=== PATIENT | male | born 1945 | race Caucasian/White ===

== ENCOUNTER 2020-09-23 06:19 | Day surgery (SDC) | payer SELFPAY ==
[2020-09-23] VITALS (7 sets, daily range): BP systolic 105–166; BP diastolic 52–81; PULSE 48–61; RESP 18; TEMP 36.2–36.8; O2SAT 96–98; BMI 31.5
--- NOTE | 2020-09-23 | IMM_PTH ---
PATIENT: TITI GERARDO LOC: EN U#:[id number] AGE/SX: 75/M ROOM: RE09/23/[address]: Dr. Olinda Acevedo MD : 1945 BED: DIS: 09/23/2020 SPEC #: [id number] RECD: 09/24/20 12:05 STATUS: AIMEE REQ #: [id number] VIVIANE: 09/23/20 00:[address]: Olinda Acevedo DEPT: IMMUNOHISTOCHEMISTRY RECD BY: Bridgette Mina ENTERED: 09/24/20 12:14 SP TYPE: IMMUNO OTHR DR: Humberto Gaytan PA-C Tissues: A - Cecum, NOS Procedures: MSH2 (add) MLH-1 (add) MSH6 (add) Anti-PMS2 (add) ERAZO-2 (add) HER2 ANALIA (add) P53 (add) KI-67 (initial) PHYSICIAN & INSTITUTION [place] [id number] SPECIMEN INFORMATION: Tissue Source: A ? Cecal mass biopsy Clinical Info: Bright red blood per rectum Specimen Number: [id number] CPT code: 57225, 52912 x7 METHODOLOGY: Deparaffinized sections of prefer/formalin-fixed tissue or PAP/DQ stained slides are incubated with monoclonal/polyclonal antibodies/oligonucleotide probes. Localization is made via biotin free immunoperoxidase method. Appropriate controls are performed and reacted as expected. Results on target cell population are indicated in the following table: RESULTS: ANTIBODY / CLONE RESULT Ki-67 (30-9) positive, >90% P53 (DO-7) negative ERAZO-2 (SP21) positive MLH-1 (M1) positive MSH2 (25D12) positive MSH6 (44) positive PMS2 (KMG2327) positive Her-2neu (CB11) negative These tests were developed and their performance characteristics determined by [facility]. They may not have been cleared or approved by the U.S. Food and Drug Administration. The FDA has determined that such clearance or approval is not necessary. The above immunohistochemical/dualISH markers are ordered and reviewed by the Pathologist. INTERPRETATION: Cecal mass, biopsy: Invasive adenocarcinoma. Result of Microsatellite Instability Study: Negative (no loss of mismatch protein; no microsatellite instability detected). AM:ayad 09/25/2020
--- NOTE | 2020-09-23 06:00 | HP_ITS ---
Intake Vital Signs 09/14/20 Height 5 ft 11 in 09/14/20 Weight: 230 lb 09/14/20 BMI 32.1 09/14/20 BP 176/78 H 09/14/20 Blood Pressure Location Rt brachial 09/14/20 Position Sitting 09/14/20 Respiration 16 09/14/20 Pulse 67 09/14/20 Pulse Source Monitor 09/14/20 Temp 97.9 F 09/14/20 Temp Source Temporal 09/14/20 Pulse Oximetry (%) 96 09/14/20 Oxygen Delivery Method room air Intake Visit Reasons: Blood in Stool Rn Integrated Required: No Is patient in pain?: No Allergies No Known Allergies Allergy (Verified 09/14/20 13:33) Medications aspirin 81 mg tablet,delayed release 81 mg PO DAILY 09/14/20 [History Confirmed 09/14/20] glimepiride 2 mg tablet 2 mg PO BID tablet 09/14/20 [History Confirmed 09/14/20] insulin glargine 100 unit/mL (3 mL) subcutaneous pen 40 unit SC DAILY ml 09/14/20 [History Confirmed 09/14/20] lisinopril 5 mg tablet 5 mg PO DAILY tablet 09/14/20 [History Confirmed 09/14/20] metformin 1,000 mg tablet 1,000 mg PO BID tablet 09/14/20 [History Confirmed 09/14/20] pioglitazone 45 mg tablet 45 mg PO DAILY tablet 09/14/20 [History Confirmed 09/14/20] simvastatin 20 mg tablet 20 mg PO ONCE tablet 09/14/20 [History Confirmed 09/14/20] tamsulosin 0.4 mg capsule 0.4 mg PO DAILY cap 09/14/20 [History Confirmed 09/14/20] PFSH Medical History (Updated 09/14/20 @ 13:31 by Sita Edwards) Bleeding (Acute) Blood in stool (Acute) Diabetes (Acute) Systolic hypertension (Acute) Urinary outflow obstruction (Acute) Rectal bleeding (Acute) Surgical History (Updated 09/14/20 @ 13:31 by Sita Edwards) No significant past surgical history (Acute) Family History (Updated 09/14/20 @ 13:31 by Sita Edwards) Mother Diabetes Father CVA (cerebral vascular accident) Social History (Updated 09/14/20 @ 13:32 by Sita Edwards) Smoking Status: Former smoker second hand exposure: No alcohol intake: never substance use type: does not use caffeine: Yes what type of physical activity do you participate in: none frequency: does not exercise HPI HPI HPI: TITI GERARDO, is a 75 M who presents to the office today for HPI HPI Surgical H&P: Yes HPI: TITI GERARDO, is a 75 M who presents to the office today for bright red blood per rectum. Patient states he started to have this on 09/06. Patient states he did have a bowel movement that time but it is not hard. Patient dates he has bowel moods daily denies any pain. Patient states today she did not have any blood per rectum as it has been improving since 09/06/2020. Patient never had a colonoscopy denies any family history of colon cancer, denies any hemorrhoids that he is aware of. Patient denies any chronic abdominal pain and states he only rarely has any reflux. ROS General General: No weight change or fatigue Gastro Gastrointestinal: No abdominal pain, No nausea or vomiting, No diarrhea, No constipation, Yes blood in stool, No acid reflux, No hemorrhoids, No ulcers, No gallbladder problem, No black,tarry stools Exam Const General: cooperative, comfortable, no acute distress, well developed Resp Effort & Inspection: normal respiratory effort Cardio Rate: regular rate GI Inspection: non-distended Palpation: soft, no guarding, nontender Psych Affect: normal affect Assessment & Plan Problems 1. BRBPR (bright red blood per rectum) K62.5 Plan I have discussed the above with the patient. I have offered the patient colonoscopy for evaluation. Scheduled for 09/23/2020 per patient request I have explained the risks/benefits of the procedure and described the procedure. I have discussed the risks with the patient, including but not limited to: infection, bleeding, perforation of the GI tract requiring emergency surgery, inability to complete the procedure, injury to any internal organs, complications of anesthesia, etc. - the patient understands and agrees to proceed. I have answered all the patient's questions to the patient's satisfaction and the patient has no further questions. The patient has been given instructions for the colon cleansing preparation. 1 day of clears, MiraLAX Dulcolax split prep. Olinda Acevedo M.D. Pager: [phone] [facility] [address] [place] [address], [facility], [address] [place] [address] Office: [phone] Orders Orders: Colonoscopy Today Plan Detail Follow Up We will schedule colonoscopy Coding Level of Care Code Off vis,new,level 3 Diagnoses BRBPR (bright red blood per rectum) K62.5 COVID (Procedure Consent) Procedure Criteria Procedure Criteria: Yes Elective The surgeon/proceduralist and patient have discussed in detail the risk of exposure to and/or potential harm posed by the COVID-19 virus with having a surgery/procedure at this time versus the risk of? delaying the surgery/procedure. It is not possible to know either the risk of delaying the surgery or procedure or chance of getting an infection with perfect accuracy, but a joint decision was made between the patient and the surgeon/proceduralist ?to proceed at this time with the scheduled surgery/procedure as indicated on the consent form.
[2020-09-23] MEDS: Lactated Ringers 1,000 ML 100 ML IV (07:02)
--- NOTE | 2020-09-23 07:14 | H&P.OPEN ---
HPI - General HPI Narrative TITI GERARDO, is a 75 M who presents [facility] Medical History (Updated 09/21/20 @ 10:46 by Lary Cotton) Back pain Bleeding Blood in stool Diabetes Heartburn Hx of cardiovascular stress test Hypertension Loose, teeth Rectal bleeding Restless legs Shortness of breath on exertion Smoker Syncope Systolic hypertension Urinary outflow obstruction Wears glasses Wears hearing aid in both ears Home Medications aspirin 81 mg tablet,delayed release 81 mg PO DAILY 09/14/20 [History Last Taken Unknown] glimepiride 2 mg tablet 2 mg PO BID tablet 09/14/20 [History Last Taken Unknown] insulin glargine 100 unit/mL (3 mL) subcutaneous pen 40 unit SC QHS ml 09/14/20 [History Last Taken Unknown] lisinopril 5 mg tablet 5 mg PO DAILY tablet 09/14/20 [History Last Taken Unknown] metformin 1,000 mg tablet 1,000 mg PO BID tablet 09/14/20 [History Last Taken Unknown] pioglitazone 45 mg tablet 45 mg PO DAILY tablet 09/14/20 [History Last Taken Unknown] simvastatin 20 mg tablet 20 mg PO ONCE tablet 09/14/20 [History Last Taken Unknown] tamsulosin 0.4 mg capsule 0.4 mg PO DAILY cap 09/14/20 [History Last Taken Unknown] Allergy/AdvReac Type Severity Reaction Status Date / Time No Known Allergies Allergy Verified 09/21/20 10:36 Family History (Updated 09/14/20 @ 13:31 by Sita Edwards) Mother Diabetes Father CVA (cerebral vascular accident) Surgical History (Updated 09/14/20 @ 13:31 by Sita Edwards) No significant past surgical history Social History (Updated 09/14/20 @ 13:[address] Olinda Acevedo MD) Smoking Status: Current some day smoker second hand exposure: No alcohol intake: never substance use type: does not use caffeine: Yes what type of physical activity do you participate in: none frequency: does not exercise Past Medical/Surgical History Planned Operation Planned Operative Procedure/s: CSCOPE Previous Hospitalizations/Surgeries HX Hospitalizations: No Any Problems With Anesthesia: No You/Your Family Experience Fever (Hyperthermia) With Anes: No Cholinesterase deficiency: No Cardiovascular Hx Hypertension: Yes (CONTROLLED WITH MED) Respiratory Hx Sleep Apnea: No Hx Respiratory Tract Infection/Cold (presently): No Do You Snore Loudly (louder than talking or can be heard): No Do You Often Feel Tired/ Fatigued/ Sleepy Dring Daytime?: No Has Anyone Observed You Stop Breathing During Sleep?: No Result (for STOP score): Negative Smoking Status: Current some day smoker Neurological Does patient have nerve stimulator: No Reproduction : No Miscellaneous Recent Exposure to Contagious Disease: No Allergies No Known Allergies Allergy (Verified 09/21/20 10:36) Discharge Is Pt Admitted From a [facility], or a Custodial: No After D/C, Where Do you Plan to Go: Return Home Vital Signs Vital Signs Vital Signs: 09/23/20 07:08 Temperature 97.1 F L Temperature Source Temporal Pulse Rate 48 L Respiratory Rate 18 Respiratory Pattern Normal Blood Pressure 166/60 H Blood Pressure Mean 95 Blood Pressure Source Monitor Blood Pressure Position Sitting Blood Pressure Location Left Arm Pulse Ox 98 Oxygen Delivery Method Room Air Surgery Risks - Colonoscopy Risks Include but are not Limited To: Risks include but are not limited to: Bleeding, perforation requiring further surgery, inability to complete colonoscopy requiring barium enema.
--- NOTE | 2020-09-23 07:15 | HP.PCM_ITS ---
History and Physical Date of Admission: 09/23/20 Date of Service: 09/14/20 MR#:[id number]:[id number]: TITI GERARDO [facility] #:[id number]:1945 Provider:Pito Pool/Sex: 75/M [facility] Int[facility] Vital Signs 09/14/20 Height 5 ft 11 in 09/14/20 Weight: 230 lb 09/14/20 BMI 32.1 09/14/20 BP 176/78 H 09/14/20 Blood Pressure Location Rt brachial 09/14/20 Position Sitting 09/14/20 Respiration 16 09/14/20 Pulse 67 09/14/20 Pulse Source Monitor 09/14/20 Temp 97.9 F 09/14/20 Temp Source Temporal 09/14/20 Pulse Oximetry (%) 96 09/14/20 Oxygen Delivery Method room air Intake Visit Reasons: Blood in Stool 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: No Is patient in pain?: No Allergies No Known Allergies Allergy (Verified 09/14/20 13:33) Medications aspirin 81 mg tablet,delayed release 81 mg PO DAILY 09/14/20 [History Confirmed 09/14/20] glimepiride 2 mg tablet 2 mg PO BID tablet 09/14/20 [History Confirmed 0 09/14/20] insulin glargine 100 unit/mL (3 mL) subcutaneous pen 40 unit SC DAILY ml 09/14/20 [History Confirmed 09/14/20] lisinopril 5 mg tablet 5 mg PO DAILY tablet 09/14/20 [History Confirmed ] metformin 1,000 mg tablet 1,000 mg PO BID tablet 09/14/20 [History Confirmed 09/14/20] pioglitazone 45 mg tablet 45 mg PO DAILY tablet 09/14/20 [History Confirmed 09/14/20] simvastatin 20 mg tablet 20 mg PO ONCE tablet 09/14/20 [History Confirmed 09/14/20] tamsulosin 0.4 mg capsule 0.4 mg PO DAILY cap 09/14/20 [History Confirmed 09/14/20] [facility] Medical History (Updated 09/14/20 @ 13:31 by Sita Edwards) Bleeding (Acute) Blood in stool (Acute) Diabetes (Acute) Systolic hypertension (Acute) Urinary outflow obstruction (Acute) Rectal bleeding (Acute) Surgical History (Updated 09/14/20 @ 13:31 by Sita Edwards) No significant past surgical history (Acute) Family History (Updated 09/14/20 @ 13:31 by Sita Edwards) Mother Diabetes Father CVA (cerebral vascular accident) Social History (Updated 09/14/20 @ 13:32 by Sita Edwards) Smoking Status: Former smoker second hand exposure: No alcohol intake: never substance use type: does not use caffeine: Yes what type of physical activity do you participate in: none frequency: does not exercise HPI HPI HPI: TITI GERARDO, is a 75 M who presents to the office today for HPI HPI Surgical H&P: Yes HPI: TITI GERARDO, is a 75 M who presents to the office today for bright red blood per rectum. Patient states he started to have this on 09/06. Patient states he did have a bowel movement that time but it is not hard. Patient dates he has bowel moods daily denies any pain. Patient states today she did not have any blood per rectum as it has been improving since 09/06/2020. Patient never had a colonoscopy denies any family history of colon cancer, denies any hemorrhoids that he is aware of. Patient denies any chronic abdominal pain and states he only rarely has any reflux. ROS General General: No weight change or fatigue Gastro Gastrointestinal: No abdominal pain, No nausea or vomiting, No diarrhea, No constipation, Yes blood in stool, No acid reflux, No hemorrhoids, No ulcers, No gallbladder problem, No black,tarry stools Exam Const General: cooperative, comfortable, no acute distress, well developed Resp Effort & Inspection: normal respiratory effort Cardio Rate: regular rate GI Inspection: non-distended Palpation: soft, no guarding, nontender Psych Affect: normal affect Assessment & Plan Problems 1. BRBPR (bright red blood per rectum) K62.5 Plan I have discussed the above with the patient. I have offered the patient colonoscopy for evaluation. Scheduled for 09/23/2020 per patient request I have explained the risks/benefits of the procedure and described the procedure. I have discussed the risks with the patient, including but not limited to: infection, bleeding, perforation of the GI tract requiring emergency surgery, inability to complete the procedure, injury to any internal organs, complications of anesthesia, etc. - the patient understands and agrees to proceed. I have answered all the patient's questions to the patient's satisfaction and the patient has no further questions. The patient has been given instructions for the colon cleansing preparation. 1 day of clears, MiraLAX Dulcolax split prep. Olinda Acevedo M.D. Pager: [phone] [facility] [address] [place] [address], [facility], [address] [place] [address] Office: [phone] Orders Orders: Colonoscopy Today Plan Detail Follow Up We will schedule colonoscopy Coding Level of Care Code Off vis,new,level 3 Diagnoses BRBPR (bright red blood per rectum) K62.5 COVID (Procedure Consent) Procedure Criteria Procedure Criteria: Yes Elective The surgeon/proceduralist and patient have discussed in detail the risk of exposure to and/or potential harm posed by the COVID-19 virus with having a surgery/procedure at this time versus the risk of delaying the surgery/procedure. It is not possible to know either the risk of delaying the surgery or procedure or chance of getting an infection with perfect accuracy, but a joint decision was made between the patient and the surgeon/proceduralist to proceed at this time with the scheduled surgery/procedure as indicated on the consent form. 09/15/20 1237<Electronically signed by Olinda Acevedo MD>Date Olinda Acevedo MD
--- NOTE | 2020-09-23 07:30 | COLBX_PTH ---
PATIENT: TITI GERARDO LOC: EN U#:[id number] AGE/SX: 75/M ROOM: RE09/23/[address]: Dr. Olinda Acevedo MD : 1945 BED: DIS: 09/23/2020 SPEC #: [id number] RECD: 09/23/20 11:37 STATUS: AIMEE REJavid #: [id number] VIVIANE: 09/23/20 07:[address]: Olinda Acevedo DEPT: SURGICAL PATHOLOGY RECD BY: Keven Pena ENTERED: 09/23/20 13:22 SP TYPE: COLON BX OTHR DR: Humberto Gaytan PA-C Tissues: A - Cecum, NOS B - Descending colon Procedures: Surgery Specimen Level IV HEADER OPERATION: Colonoscopy (MAC) PRE-OP DIAGNOSIS: Bright red blood per rectum TISSUE SUBMITTED: A ? Cecal mass biopsy, B ? Biopsy of descending colon MICROSCOPIC DIAGNOSIS A. Cecal mass, biopsy: Invasive adenocarcinoma, moderately differentiated. See comment. B. Descending colon polyp, biopsy: Fragments of benign colonic mucosa. See comment. AM:ayad 09/24/2020 COMMENT A. Immunohistochemistry ([id number]) for microsatellite instability will be performed and the results will be reported separately. B. Neither hyperplastic nor adenomatous change is identified. Clinical correlation is suggested. Case has been reviewed in consultation with Dr. Negron who concurs with the above diagnosis. IDC:RICARDO MICROSCOPIC DESCRIPTION Slides are reviewed. GROSS DESCRIPTION A - Received in fixative is one container labeled with the patient's name and designated cecal mass biopsy. The specimen consists of multiple irregular fragments of light thacker soft tissue that in aggregate measure 1.5 x 0.5 x 0.1 cm. The specimen is totally submitted in one cassette. B - Received in fixative is one container labeled with the patient's name and designated biopsy of descending colon. The specimen consists of two irregular fragments of light thacker soft tissue that in aggregate measure 0.7 x 0.5 x 0.1 cm. The specimen is totally submitted in one cassette. / SJ:ayad 09/23/20 TC:0 CPT: 29875 x2
[2020-09-23 07:36] LABS: Bedside Glucose 163 mg/dL (70-110)
--- NOTE | 2020-09-23 08:17 | OP.COLON_ITS ---
Patient Name: Wilfred Grier Procedure Date: 09/23/2020 7:35 AM Date of : 1945 Age: 75 Procedure: Colonoscopy Indications: Rectal bleeding Providers: Olinda Acevedo MD Referring MD: Olinda Acevedo MD Medicines: Monitored Anesthesia Care Patient Profile: Last Colonoscopy: none. The patient's first colonoscopy is today. Complications: No immediate complications. Procedure: Pre-Anesthesia Assessment: - Prior to the procedure, a History and Physical was performed, and patient medications and allergies were reviewed. The patient's tolerance of previous anesthesia was also reviewed. The risks and benefits of the procedure and the sedation options and risks were discussed with the patient. All questions were answered, and informed consent was obtained. Prior Anticoagulants: The patient has taken no previous anticoagulant or antiplatelet agents. ASA Grade Assessment: Per anesthesia. After reviewing the risks and benefits, the patient was deemed in satisfactory condition to undergo the procedure. After I obtained informed consent, the scope was passed under direct vision. Throughout the procedure, the patient's blood pressure, pulse, and oxygen saturations were monitored continuously. The pediatric colonoscope was introduced through the anus and advanced to the cecum, identified by the appendiceal orifice, ileocecal valve and palpation. The colonoscopy was performed without difficulty. The patient tolerated the procedure well. The quality of the bowel preparation was good. Scope In: 7:49:53 AM Scope Withdrawal Time 0 hours 11 minutes 58 seconds Scope Out: 8:06:45 AM Total Procedure Duration Time 0 hours 16 minutes 52 seconds Findings: The perianal and digital rectal examinations were normal. A frond-like/villous non-obstructing [Size] mass was found in the cecum. [Circumferential]. The mass measured three cm in length. No bleeding was present. Biopsies were taken with a cold forceps for histology. A less than 5 mm polyp was found in the descending colon. The polyp was sessile. The polyp was removed with a cold biopsy forceps. Resection and retrieval were complete. Impression: - Likely malignant tumor in the cecum. Biopsied. - One less than 5 mm polyp in the descending colon, removed with a cold biopsy forceps. Resected and retrieved. Recommendation: - Await pathology results. - Discharge patient to home. - Resume previous diet. - Continue present medications. - Pt will need surgery for right hemicolectomy due to mass - Repeat colonoscopy is recommended. The colonoscopy date will be determined after pathology results from today's exam become available for review. Procedure Code(s): --- Professional --- 37680, Colonoscopy, flexible; with biopsy, single or multiple Diagnosis Code(s): --- Professional --- D49.0, Neoplasm of unspecified behavior of digestive system D12.4, Benign neoplasm of descending colon K62.5, Hemorrhage of anus and rectum CPT copyright 2017 [employer]. All rights reserved. The codes documented in this report are preliminary and upon lead architect review may be revised to meet current compliance requirements. MD Olinda Wilkins MD 09/23/2020 8:16:34 AM This report has been signed electronically. Number of Addenda: 0 Note Initiated On: 09/23/2020 7:35 AM
--- NOTE | 2020-09-23 08:17 | OP.CCLET_ITS ---
09/23/2020 Humberto Gaytan Do Re : Colonoscopy procedure for Wilfred Grier Dear Lucila This procedure was performed on Wednesday, September 23, 2020. My impressions and recommendations are as follows: Impressions : - Likely malignant tumor in the cecum. Biopsied. - One less than 5 mm polyp in the descending colon, removed with a cold biopsy forceps. Resected and retrieved. Recommendations : - Await pathology results. - Discharge patient to home. - Resume previous diet. - Continue present medications. - Pt will need surgery for right hemicolectomy due to mass - Repeat colonoscopy is recommended. The colonoscopy date will be determined after pathology results from today's exam become available for review. My findings are described in the full procedure note, which is enclosed. If I can be of further assistance, please feel free to contact me at Doctor phone number(s): , Work: . Sincerely, MD Olinda Wilkins MD 09/23/2020 8:16:34 AM This report has been signed electronically.
--- NOTE | 2020-09-23 08:33 | CT_ITS ---
STUDY: CT CHEST, ABDOMEN T PELVIS WITH CONTRAST REASON FOR EXAM: Male, 75 years old. ABD MASS found on colonoscopy. History of rectal bleeding. -- IV AND PO CONTRAST RADIATION DOSAGE (If Supplied By Facility): CTDIvol = ( 22.06 ) mGy, DLP = ( 1899.90 ) mGycm TECHNIQUE: Transaxial imaging was performed following intravenous administration of Oral and amp; IV Gastrografin and amp; 100mL Isovue-370. Individualized dose optimization techniques were used for this CT. COMPARISON: No relevant priors. FINDINGS: CHEST Inhomogeneous enhancement of the right lobe of the thyroid and isthmus. Correlation with ultrasound is recommended. Mild degree of increased linear markings at the lung bases suggestive of bowel mild atelectasis and/or scarring. There is a 1.4 cm cyst in the anterior aspect of the right upper lobe at level of the apex. There is no demonstrated pleural abnormality. Coronary artery calcification. Normal mediastinum. Normal hilar regions. Normal unenhanced pulmonary arteries. There is atherosclerotic calcification of the aortic arch with tortuosity and elongation of the aortic arch and descending thoracic aorta. There are multi-level degenerative changes of the thoracic spine. There is no demonstrated abnormality of the visualized upper abdomen. ABDOMEN Increased markings at the lung bases suggestive of scarring. Coronary artery calcification. There is hepatomegaly with diffuse hepatic enlargement. Normal gallbladder and extrahepatic biliary system. Normal spleen. Normal pancreas. Normal bilateral adrenal glands. 1 cm cyst in the anterior midportion of the right kidney. Normal left kidney. Normal visualized stomach. Normal small intestine. Normal colon. The appendix is visualized and appears normal. There is diffuse atherosclerotic calcification of the abdominal aorta and its major visceral branches, without a demonstrated aneurysm. Normal inferior vena cava. There is borderline retroperitoneal lymphadenopathy with enlarged nodes no greater than 10mm in the short axis diameter. Normal abdominal wall. Normal osseous structures. PELVIS Distended urinary bladder. Focal thickening of the urinary bladder at the base on the right side. Correlation with endoscopy is recommended. Normal visualized small intestine. Question small soft tissue density in the cecum. There is no pelvic fluid. There is no pelvic lymphadenopathy or mass lesion. Normal visualized pelvic arteries. Normal abdominal wall. There are diffuse degenerative changes of the visualized lumbar spine. CT/CT Chest, Abd, Pel w/Contrast IMPRESSION: Distended urinary bladder. Soft tissue density at the base of the bladder on the right side. Correlation with endoscopy is recommended. Questionable soft tissue density in the cecum. Electronically Signed: Konrad Silvestre MD at 12:17 EDT , Service support ,
[2020-09-23 10:32] LABS: Hematocrit 37.8 % (40-54); Hemoglobin 12.1 g/dL (13.0-16.5); Mean Corpuscular Hgb 28.9 pg (27.0-32.0); Mean Corpuscular Volume 90.2 fL (80-94); Mean Platelet Vol. 9.8 fl (6.2-12.0); Platelet Count 193 K/mm3 (150-450); RBC Distribution Width CV 14.5 % (11.6-14.6); Red Blood Count 4.19 M/mm3 (4.6-6.2); White Blood Count 6.5 K/mm3 (4.4-11.0)
[2020-09-23 10:48] LABS: AST(SGOT) 14 U/L (15-37); Alanine Aminotransfer ALT/SGPT 17 U/L (16-61); Albumin, Serum 3.4 g/dL (3.2-5.0); Alkaline Phosphatase 80 U/L (45-117); Anion Gap 3 (5-15); BUN 9 mg/dL (7-18); BUN/Creat Ratio 13.3 RATIO (10-20); Calcium,Total 8.6 mg/dL (8.5-10.1); Chloride 109 mmol/L (98-107); Creatinine, Serum 0.68 mg/dL (0.70-1.30); EST Glomerular Filtration Rate 121 mL/min (>60); Est Glom Filt Rate - Afr Amer 146 mL/min (>60); Estimated Creatinine Clearance 66.93 ml/min; Globulin 3.4 g/dL (2.2-4.2); Glucose 135 mg/dL (74-106); Potassium 4.2 mmol/L (3.5-5.1); Protein, Total 6.8 g/dL (6.4-8.2); Sodium Level 139 mmol/L (136-145)
== END 2020-09-23 11:00 ==
LOC: EN 06:21 → AC 06:22
PROVIDERS: PCP Physician Assistant; Referring Provider Surgery; Visit Provider Surgery
PROC: 0DJD8ZZ Inspection of Lower Intestinal Tract, Via Natural or Artificial Opening Endoscopic (ICD-10-PCS; CPT 45378; principal; 2020-09-23 07:25)
DX: C18.0 Malignant neoplasm of cecum (principal); E11.9 Type 2 diabetes mellitus without complications; I10 Essential (primary) hypertension; E66.9 Obesity, unspecified; Z79.4 Long term (current) use of insulin; Z79.82 Long term (current) use of aspirin; Z68.31 Body mass index [BMI] 31.0-31.9, adult; Z79.899 Other long term (current) drug therapy; Z68.32 Body mass index [BMI] 32.0-32.9, adult; Z87.891 Personal history of nicotine dependence
CPT/HCPCS: 45380; 71260; 74177; 80053; 82378; 82962; 85027; 87635; 88305; 88341; 88342; C9803; J7120; Q9967; A4216; J2405; U0002

== ENCOUNTER 2020-10-12 05:10 | Inpatient (IN) | payer SELFPAY ==
[2020-10-01 08:10] VITALS: BMI 31.5
--- NOTE | 2020-10-02 09:52 | NURSING ---
Pt's answered PAT phone interview questions. pt's voiced confusion regarding several items; pt's instructed to call Dr Acevedo's office to clarify: if need to stop aspirin, pre-op antibiotics, date of the surgery (10/08 vs 10/12), and colon prep. Pt's verbalizes understanding and states she wrote down those items. Pt's instructed to phone back to PAT if any other concerns or questions.
--- NOTE | 2020-10-06 09:05 | EKG12_ITS ---
Test Reason : PREOP Blood Pressure : / mmHG Vent. Rate : 048 BPM Atrial Rate : 048 BPM P-R Int : 180 ms QRS Dur : 088 ms QT Int : 462 ms P-R-T Axes : 023 007 014 degrees QTc Int : 412 ms Sinus bradycardia Otherwise normal ECG Confirmed by PATRICIA ARRIAZA, FABIAN ([id number]), digital editor NAYLA GUPTA ([id number]) on 10/07/2020 10:28:52 AM Referred By: GÉNESIS ABREU Confirmed By:FABIAN GOMEZ MD
[2020-10-06 10:26] LABS: Hematocrit 40.5 % (40-54); Hemoglobin 12.7 g/dL (13.0-16.5); Mean Corp Hgb Conc 31.4 g/dL (32-36); Mean Corpuscular Hgb 29.1 pg (27.0-32.0); Mean Corpuscular Volume 92.9 fL (80-94); Mean Platelet Vol. 9.8 fl (6.2-12.0); Platelet Count 184 K/mm3 (150-450); RBC Distribution Width CV 14.4 % (11.6-14.6); RBC Distribution Width SD 48.8 fl (35.1-43.9); Red Blood Count 4.36 M/mm3 (4.6-6.2); White Blood Count 7.2 K/mm3 (4.4-11.0)
[2020-10-06 10:52] LABS: Hemoglobin A1c 7.8 % (3.8-5.6)
[2020-10-06 10:57] LABS: Anion Gap 3 (5-15); BUN 18 mg/dL (7-18); BUN/Creat Ratio 22.1 RATIO (10-20); Calcium,Total 8.8 mg/dL (8.5-10.1); Chloride 105 mmol/L (98-107); Creatinine, Serum 0.82 mg/dL (0.70-1.30); EST Glomerular Filtration Rate 98 mL/min (>60); Est Glom Filt Rate - Afr Amer 118 mL/min (>60); Glucose 191 mg/dL (74-106); Magnesium 2.1 mg/dL (1.6-2.6); Potassium 4.7 mmol/L (3.5-5.1); Sodium Level 138 mmol/L (136-145)
[2020-10-12] VITALS (14 sets, daily range): BP systolic 118–164; BP diastolic 62–78; PULSE 50–63; RESP 14–18; TEMP 36.1–36.9; O2SAT 91–98; BMI 31.0
[2020-10-12] MEDS: Gabapentin 600 MG Tablet PO (06:21)
[2020-10-12] MEDS: Acetaminophen 500 MG Tablet 1000 MG PO ×3 (06:21→20:57)
[2020-10-12] MEDS: Lactated Ringers 1,000 ML 40 ML IV ×2 (06:22→21:02)
[2020-10-12] MEDS: Insulin Lispro 100 UNIT/ML INSULN.PEN SC ×5 (06:32→20:57)
[2020-10-12 06:41] LABS: Bedside Glucose 212 mg/dL (70-110)
--- NOTE | 2020-10-12 07:12 | HP.PCM_ITS ---
History and Physical Date of Admission: 10/12/20 Date of Service: 10/01/20 MR#:[id number] Acct:[id number] Name: TITI GERARDO :1945 Age/Sex: 75/M Provider:Dr. 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: No Is patient in pain?: No Allergies No Known Allergies Allergy (Verified 10/01/20 08:09) Medications aspirin 81 mg tablet,delayed release 81 mg PO DAILY 09/14/20 [History Confirmed 10/01/20] glimepiride 2 mg tablet 2 mg PO BID tablet 09/14/20 [History Confirmed 10/01/20] insulin glargine 100 unit/mL (3 mL) subcutaneous pen 40 unit SC QHS ml 09/14/20 [History Confirmed 10/01/20] lisinopril 5 mg tablet 5 mg PO DAILY tablet 09/14/20 [History Confirmed 10/01/20] metformin 1,000 mg tablet 1,000 mg PO BID tablet 09/14/20 [History Confirmed 10/01/20] pioglitazone 45 mg tablet 45 mg PO DAILY tablet 09/14/20 [History Confirmed 10/01/20] simvastatin 20 mg tablet 20 mg PO ONCE tablet 09/14/20 [History Confirmed 10/01/20] tamsulosin 0.4 mg capsule 0.4 mg PO DAILY cap 09/14/20 [History Confirmed 10/01/20] metronidazole 500 mg tablet 500 mg PO .COMPLEX #6 tab 10/01/20 [Rx Confirmed 10/01/20] neomycin 500 mg tablet 500 mg PO .COMPLEX #6 tab 10/01/20 [Rx Confirmed 10/01/20] [facility] Medical History Back pain Bleeding Blood in stool Diabetes Heartburn Hx of cardiovascular stress test Hypertension Loose, teeth Rectal bleeding Restless legs Shortness of breath on exertion Smoker Syncope Systolic hypertension Urinary outflow obstruction Wears glasses Wears hearing aid in both ears Surgical History No significant past surgical history Family History Mother Diabetes Father CVA (cerebral vascular accident) Social History Smoking Status: Current some day smoker second hand exposure: No alcohol intake: never substance use type: does not use caffeine: Yes what type of physical activity do you participate in: none frequency: does not exercise HPI: TITI GERARDO, is a 75 M who presents to the office today for discussion of pathology status post colonoscopy. Patient did have cecal mass noted on colonoscopy. Pathology did show adenocarcinoma. Patient did have a CT chest abdomen pelvis as well as labs after the colonoscopy which did not show any evidence of metastatic disease, lab work was within normal limits CEA was 3. Patient denies any abdominal pain or any further bleeding per rectum. ROS General General: Yes colon cancer Cardio Cardiovascular: No chest pain Gastro Gastrointestinal: No abdominal pain, No nausea or vomiting, No diarrhea, No constipation, No acid reflux, No hemorrhoids, No ulcers and No gallbladder problem Exam Const General: cooperative, healthy appearing, comfortable and no acute distress Neck Neck: normal visual inspection Resp Effort & Inspection: normal respiratory effort Cardio Rate: regular rate GI Inspection: non-distended Palpation: soft, no guarding and nontender Skin General: no rashes or lesions noted Neuro General: patient oriented x3 Psych Affect: normal affect COVID (Procedure Consent) Procedure Criteria Procedure Criteria: Yes Elective The surgeon/proceduralist and patient have discussed in detail the risk of exposure to and/or potential harm posed by the COVID-19 virus with having a surgery/procedure at this time versus the risk of delaying the surgery/procedure. It is not possible to know either the risk of delaying the surgery or procedure or chance of getting an infection with perfect accuracy, but a joint decision was made between the patient and the surgeon/proceduralist to proceed at this time with the scheduled surgery/procedure as indicated on the consent form. Assessment and Plan Assessment and Plan (1) Colon adenocarcinoma: Status: Acute Plan Details Other Medications: New: neomycin Take two (2) 500 mg tablets PO at 1300, 1500, 2300 6 tabs 0RF pre-op antibiotics metronidazole Take 2 (two) tablets at 1300, 1500, 2300 6 tabs 0RF Additional Comments: Did discuss the anatomy and procedure: (ERAS) laparoscopic right hemicolectomy, possible open with the patient. Including risks, but not limited to, bleeding, infection (superficial or intraabdominal), injury to another organ (small bowel, colon, ureter, etc.) requiring additional procedures, and blood clots. Also, discussed the pre-op, colon prep and antibiotics. All questions were answered. Greater than 50% of direct patient contact was spent in counseling or coordination of care. I spent 25 minutes counseling the patient on colon cancer treatment, reviewing CT abdomen pelvis and coordinating care. Olinda Acevedo M.D. Pager: [phone] [facility] [address] [place] [address], [address] [place] [id number] Office: [phone] Follow Up: We will schedule surgery Coding Level of Care Code Off vis,est,level 4 Diagnoses Colon adenocarcinoma C18.9 10/01/20 0846<Electronically signed by Olinda Acevedo MD>Date Olinda Acevedo MD
--- NOTE | 2020-10-12 07:30 | COL._PTH ---
PATIENT: TITI GERARDO LOC: MS3 U#:[id number] AGE/SX: 75/M ROOM: [facility] [place]10/12/[address]: Dr. Olinda Acevedo MD : 1945 BED: 1 DIS: 10/16/2020 SPEC #: [id number] RECD: 10/12/20 13:26 STATUS: AIMEE REJavid #: [id number] VIVIANE: 10/12/20 07:[address]: Olinda Acevedo DEPT: SURGICAL PATHOLOGY RECD BY: Annie Corbin ENTERED: 10/13/20 08:18 SP TYPE: COLON OTHR DR: MD Humberto Galan PA-C Tissues: Colon, NOS Procedures: Surgery Specimen Level III Surgery Specimen Level HEADER OPERATION: NATALYA, laparoscopic hemicolectomy PRE-OP DIAGNOSIS: Colon adenocarcinoma TISSUE SUBMITTED: Right hemicolon MICROSCOPIC DIAGNOSIS Right colon, hemicolectomy: Invasive well to moderately differentiated adenocarcinoma. 18 out of 18 lymph nodes, negative for metastatic carcinoma. Colonic and small intestine donut, no pathologic diagnosis. See cancer summary in the comment section. SJ:ayad 10/14/2020 COMMENT COLON CANCER SUMMARY Procedure: Right hemicolectomy Tumor site: Cecum Tumor size: 6 x 4 x 2 cm Macroscopic tumor perforation: Not identified Histologic type: Adenocarcinoma Histologic grade: Grade 1-2 (well to moderately differentiated) Tumor extension: Tumor invades through muscularis propria into pericolonic adipose tissue. Margins: All margins are uninvolved by invasive carcinoma, high grade dysplasia, intramucosal adenocarcinoma and adenoma. The tumor is present 12.5 cm away from the proximal resection margin. Treatment effect: No known presurgical therapy. Lymphvascular invasion: Not identified Perineural invasion: Not identified Type of polyp in which invasive carcinoma arose: None identified Tumor deposits: Not identified Regional lymph nodes: Number of lymph nodes examined: 18 Number of lymph nodes involved: 0 Distant metastasis: Not applicable Additional pathologic findings: Appendix, fibrous luminal obliteration. Colonic and small intestine donut, no pathologic diagnosis. Ancillary studies: Please see microsatellite instability study by IHC ([id number]) for complete details. Negative (no loss of mismatch protein; no microsatellite instability detected). PATHOLOGIC STAGE: pT3 pN0 Mx The above summary is in compliance with [employer] [place] [employer] (CAP) Cancer Protocols Checklist and [place] Joint Committee on Cancer (AJCC), Staging Manual, 8th Ed. Please make reference to previous specimen ([id number]) cecal mass, biopsy with diagnosis of invasive adenocarcinoma, moderately differentiated. Case has been reviewed in consultation with Dr. Santillan who concurs with the above diagnosis. IDC:AM MICROSCOPIC DESCRIPTION Slides are reviewed. GROSS DESCRIPTION Received in fixative is one container labeled with the patient's name and designated right hemicolon. The specimen consists of a right hemicolectomy specimen consisting of segment of colon with attached pericolonic adipose tissue, segment of small intestine, attached mesenteric tissue and appendix. Both resection margins are stapled. A piece of omental tissue is also noted attached to the distal portion. The segment of cecum with ascending colon measures 20 cm in length. The appendix measures 3 cm in length and 0.4 cm in diameter and segment of small intestine measures 10 cm in length. The attached omentum measures 18 x 9 x 1.5 cm. A donut-shaped piece of tissue is also noted measuring 4 x 1 x 1 cm. 17 cm away from the distal resection margin and 2.5 cm away from the ileocecal valve is an ulcerated cauliflower-like mass is noted measuring 6 x 4 x 2 cm. No additional mass lesion is identified. The lumen contains fecal material. The serosal surface overlying the mass is inked blue. The pericolonic adipose tissue is fixed in lymph node-revealing solution. More dictation will follow after overnight fixation. / SJ:ayad 10/12/20 Sections of the appendix reveal obliterated lumen. Sections of the tumor mass reveal full thickness involvement of the bowel wall. Sections of the omentum does not reveal any mass lesion. Sections of pericolonic adipose tissue reveal multiple lymph nodes. The largest lymph node measures 1 cm in greatest dimension. Colon Therapist sections are submitted as follows: 1 - donut, 2 - appendix, entirely submitted, 3 - proximal and distal resection margins, 4 - uninvolved small intestine, large intestine and ileocecal valve, 4-9 - tumor, 10??one bisected lymph node, 11 & 12 - multiple lymph nodes, 13 - one serially sectioned lymph node, 14?- one bisected lymph node, 15 & 16 - each cassette containing multiple lymph nodes, 17 - one serially sectioned lymph node. / SJ:ayad 10/13/20 TC:0 CPT: 75305, 82275
[2020-10-12] MEDS: Lidocaine/D5W 2,000 MG/250 ML IV.SOLN 30 MG IV (07:50)
[2020-10-12] MEDS: Bupivacaine 0.25% 30 ML Vial (08:00)
[2020-10-12] MEDS: BUPIVACAINE LIPOSOME/PF 20 ML VIAL OPERA.SITE (08:00)
--- NOTE | 2020-10-12 10:26 | PCM.OPRPT ---
Report of Operation Date of Procedure: 10/12/20 Pre-Operative Diagnosis: Cecal adenocarcinoma Post-Operative Diagnosis: Same Surgery/Procedure Performed:: Laparoscopic right hemicolectomy Surgeon: Olinda Acevedo foundation stage teacher: Elsa Hendrix Type of Anesthesia: General/Supplemental Anesthesiologist: Tonny Duffy Special Medications: Cefotetan 2 g IV x1 Specimen's removed: Right colon Drains: Hayes 200 cc Estimated Blood Loss (mL): 20 cc Fluids Replaced: Per anesthesia Description of Procedure: Indications this is a 75-year-old male who initially had bright red blood per rectum, colonoscopy was completed which showed a cecal mass consistent with adenocarcinoma. Laparoscopic right hemicolectomy was elected. Description procedure: The patient was placed on operating table in supine position. General Anesthesia was induced. A timeout was completed verifying correct patient, procedure, site, position, social, and special equipment prior to beginning procedure. Hayes catheter was placed. The abdomen was prepped and draped in usual sterile fashion. An incision was made in the natural skin line above the umbilicus. The fascia was elevated and incised. The peritoneum was elevated and incised. Entry into the peritoneum was confirmed visually and no bowel was noted in the vicinity of the incision. Hardin trocar was placed. The abdomen was insufflated with carbon dioxide to a pressure of 12-15 mmHg. Patient tolerated insufflation well. The laparoscope was then inserted and abdomen inspected. No injuries from initial trocar placement were noted. Additional trochars were then inserted in the following locations 5 mm trocar in the left lower quadrant, and another 5 mm suprapubically. The abdomen was inspected the area of the cecal mass did have some filmy adhesions to the anterior lateral abdominal wall these were taken down with the Enseal. The table is placed in Trendelenburg position with the right side up. The cecum was grasped with the left hand the operating surgeon lifted up to tent the ileocolic artery. The dissection was then started at the base of the ileocolic artery were joined the superior mesenteric artery. The peritoneum overlying the takeoff of the ileal colic artery was opened using electrocautery. 5 mm Hem-o-ok clips x3 were used to go across ileocolic vessels, once that had been cleaned off, divided with laparoscopic scissors. Dissection continued bluntly in the retroperitoneum using traction and countertraction technique with gentle sweeping and visualization of the ureter was confirmed. This dissection was carried along the plane of the white line of Toldt to the duodenum. The duodenum and its attachments were swept downward. This dissection continued in an avascular plane to the liver and gallbladder were encountered. The lateral attachments of the ascending colon were then divided using the Enseal. The omentum attached to resect a portion of the colon was divided and resected with the specimen. The supraumbilical incision was enlarged in length. A wound protector was then placed into the peritoneal cavity to prevent port site implantation as well as minimize risk of wound infection. They ascending and transverse colon were then delivered and extracted. The small bowel and colon was then divided extracorporeally with the BASHIR 75 after the right branch of the middle colic was also divided with the Enseal. The mesenteric dissection was completed using the Enseal. The specimen was removed. The 2 ends of the ileum and transverse colon were then aligned, ensuring that the mesentery was not twisted, and the staple [id number] anastomosis using the standard load BASHIR-75 and TL 60. The peritoneum was again insufflated and the anastomosis, alignment of the bowel, hemostasis were checked. The trochars removed under direct visualization. Once the wound protector was removed, gowns and gloves were changed. The midline incision was closed with 1-0 PDS suture at the fascia and then the skin was closed with 4-0 Monocryl interrupted sutures. Dry sterile dressings were applied. The sponge and instrument count were correct. The patient was extubated. The patient tolerated procedure well and was taken to the postanesthesia care unit in stable condition. Complications None
[2020-10-12 11:45] LABS: Bedside Glucose 204 mg/dL (70-110)
--- NOTE | 2020-10-12 13:48 | PN.HOSP_ITS ---
Subjective Subjective Consult for post-op medical management: 75-year-old male with past medical history of hypertension, type II DM, on long- term insulin, who comes in for elective laparoscopic right hemicolectomy. Patient gives a history of having had hematochezia, noted on 09/06. He subsequently followed up with colonoscopy. Findings showed a malignant tumor in the cecum and a polyp in the descending colon that was biopsied. That was biopsied. Pathology showed invasive adenocarcinoma, moderately differentiated. Subsequent CT scan of the chest, abdomen and pelvis showed soft tissue density at the base of the bladder on the right side as well as cecal soft tissue density. Objective Data Objective Data Vital Signs: Vital Signs Temp Pulse Resp BP Pulse Ox 97.5 F L 63 18 164/75 H 96 10/12/20 13:00 10/12/20 13:00 10/12/20 13:00 10/12/20 13:00 10/12/20 13:15 Oxygen Flow Rate (L/min) 6 Oxygen Delivery Method Simple Mask Weight: 100.9 kg Body Mass Index (BMI) 31.0 Intake & Output: Intake and Output for Last 24 Hours 10/10/20 10/11/20 10/12/20 23:59 23:59 23:59 Intake Total 205 / 205 Output Total 325 / 325 Balance -120 / -120 Lab / Micro Data Result Diagrams: 10/06/20 09:30 10/06/20 09:30 Labs: Laboratory Results - last 24 hr 10/12/20 10/12/20 06:04 11:43 POC Glucose 212 H 204 H Micro: Microbiology 10/06/20 09:20 Interface Orders SARS-CoV-2 Antigen (Rapid) - Final Physical Exam Narrative Physical exam: General: Alert, Oriented x3, Cooperative, slightly sleepy, no apparent distress, well developed HEENT: Atraumatic Oral: Moist Mucosa Neck: Supple Lungs: Clear to auscultation Cardiovascular: HS I+II, regular, no murmurs Abdomen: Bowel Sounds hypoactive, soft, laparoscopic dressing in place, clean, intact Extremities: No edema Neurological: Grossly intact Assessment & Plan Assessment/Plan (1) Status post colectomy: (2) Colon adenocarcinoma: (3) Diabetes: (4) Systolic hypertension: PLAN: 1. POD #0, status post laparoscopic right hemicolectomy for cecal adenocarcinoma Pain is controlled. Continue on Tylenol as needed, early ambulation recommended 2. Hypertension, controlled, continue with lisinopril 3. Type II DM, on Metformin, pioglitazone, Lantus 40 units nightly Patient is currently on clear liquid diet, blood sugars are fairly uncontrolled Would continue on Lantus 15 units nightly for now, continue on medium scale insulin sliding scale Continue to monitor for hypoglycemia, blood glucose check ACHS Home insulin levels may be resumed as patient's renal function continues to remain stable 4. Acute hypoxic respiratory insufficiency likely secondary to atelectasis Patient is on 2 L at the time of being seen, encourage use of incentive spirometer, wean off for SPO2 more than 94% 5. DVT PPx- on Lovenox SC Visit Charges Inpatient E&M: 04076 Init Hosp L2
--- NOTE | 2020-10-12 13:54 | PCM.PN.BLA ---
Progress Note Postoperatively patient is doing well, states he has a little bit of nausea. Denies abdominal pain. Incision dressed clean dry and intact. Patient ambulate/up to the chair later today.
[2020-10-12] MEDS: Ensure Clear 120 ML Liquid PO (14:01)
[2020-10-12 16:31] LABS: Bedside Glucose 176 mg/dL (70-110)
[2020-10-12] MEDS: Tamsulosin HCl 0.4 MG Capsule PO (18:28)
[2020-10-12] MEDS: Atorvastatin Calcium 10 MG Tablet PO (20:56)
[2020-10-12] MEDS: Docusate Sodium 100 MG Capsule PO (20:56)
[2020-10-12 21:16] LABS: Bedside Glucose 257 mg/dL (70-110)
[2020-10-12] MEDS: Ibuprofen 400 MG Tablet PO (23:37)
[2020-10-13 02:14] VITALS: BP 127/63; PULSE 57; RESP 18; TEMP 36.8; O2SAT 96
[2020-10-13 05:56] LABS: Hemoglobin 12.4 g/dL (13.0-16.5); Mean Corp Hgb Conc 31.8 g/dL (32-36); Mean Corpuscular Hgb 28.8 pg (27.0-32.0); Mean Corpuscular Volume 90.7 fL (80-94); Mean Platelet Vol. 9.4 fl (6.2-12.0); Platelet Count 172 K/mm3 (150-450); RBC Distribution Width CV 14.2 % (11.6-14.6); RBC Distribution Width SD 47.9 fl (35.1-43.9); White Blood Count 10.7 K/mm3 (4.4-11.0)
[2020-10-13] MEDS: Acetaminophen 500 MG Tablet 1000 MG PO ×2 (06:02→16:25)
[2020-10-13 06:22] LABS: Anion Gap 6 (5-15); BUN 11 mg/dL (7-18); BUN/Creat Ratio 12.4 RATIO (10-20); Calcium,Total 8.3 mg/dL (8.5-10.1); Chloride 106 mmol/L (98-107); Creatinine, Serum 0.88 mg/dL (0.70-1.30); EST Glomerular Filtration Rate 89 mL/min (>60); Est Glom Filt Rate - Afr Amer 107 mL/min (>60); Estimated Creatinine Clearance 76.06 ml/min; Glucose 114 mg/dL (74-106); Potassium 3.7 mmol/L (3.5-5.1); Sodium Level 140 mmol/L (136-145)
[2020-10-13 06:30] LABS: Bedside Glucose 132 mg/dL (70-110)
[2020-10-13 07:25] VITALS: O2SAT 93
[2020-10-13 07:40] VITALS: BP 135/58; PULSE 55; RESP 16; TEMP 36.6; O2SAT 94
--- NOTE | 2020-10-13 08:25 | PN.SURG_ITS ---
Subjective Subjective Patient is tolerating clears, no flatus, ambulating and sitting up in chair, Hayes removed this morning Objective Data Objective Data Vital Signs: Vital Signs Temp Pulse Resp BP Pulse Ox 98 F 55 L 16 135/58 H 94 10/13/20 07:40 10/13/20 07:40 10/13/20 07:40 10/13/20 07:40 10/13/20 07:40 Oxygen Flow Rate (L/min) 2 Oxygen Delivery Method Room Air Weight: 222 lb 7.143 oz Body Mass Index (BMI) 31.0 Intake & Output: Intake and Output for Last 24 Hours 10/11/20 10/12/20 10/13/20 23:59 23:59 23:59 Intake Total 2131.67 / 2131.67 400 / 400 Output Total 2525 / 2525 850 / 850 Balance -393.33 / -393.33 -450 / -450 Lab / Micro Data Result Diagrams: 10/13/20 05:20 10/13/20 05:20 Labs: Laboratory Results - last 24 hr 10/12/20 10/12/20 10/12/20 11:43 16:24 20:55 WBC RBC Hgb Hct MCV MCH MCHC RDW Std Deviation RDW Coeff of Paulie Plt Count MPV Sodium Potassium Chloride Carbon Dioxide Anion Gap BUN Creatinine Estim Creat Clear Calc Est GFR (MDRD) Af Amer Est GFR (MDRD) Non-Af BUN/Creatinine Ratio Glucose Calcium POC Glucose 204 H 176 H 257 H 10/13/20 10/13/20 10/13/20 05:20 05:20 06:01 WBC 10.7 RBC 4.30 L Hgb 12.4 L Hct 39.0 L MCV 90.7 MCH 28.8 MCHC 31.8 L RDW Std Deviation 47.9 H RDW Coeff of Paulie 14.2 Plt Count 172 MPV 9.4 Sodium 140 Potassium 3.7 Chloride 106 Carbon Dioxide 28.0 Anion Gap 6 BUN 11 Creatinine 0.88 Estim Creat Clear Calc 76.06 Est GFR (MDRD) Af Amer 107 Est GFR (MDRD) Non-Af 89 BUN/Creatinine Ratio 12.4 Glucose 114 H Calcium 8.3 L POC Glucose 132 H Micro: Microbiology 10/06/20 09:20 Interface Orders SARS-CoV-2 Antigen (Rapid) - Final Physical Exam Resp normal respiratory effort Cardio regular rate GI GI Narrative: Abdomen: Soft, nondistended, tender near incision's dressed clean dry and intact, no peritoneal signs Assessment & Plan Assessment/Plan (1) Status post colectomy: PLAN: Postop day 1 status post right hemicolectomy Continue clears all patient has flatus plan will advance to transitional. Pain controlled with Tylenol Lovenox for DVT prophylaxis Continue ambulating up to chair Appreciate medicine's assistance with diabetic management Olinda Acevedo M.D. Pager: [phone] [facility] [address] [place] [address], [facility], [address] [place] [address] Office: [phone]
[2020-10-13] MEDS: Enoxaparin 40 MG/0.4 ML Syringe SC (08:50)
[2020-10-13] MEDS: Lisinopril 5 MG Tablet PO (08:50)
[2020-10-13] MEDS: Docusate Sodium 100 MG Capsule PO ×2 (08:50→22:03)
--- NOTE | 2020-10-13 10:45 | CASEMGMT ---
RN TABATHA Face to Face with patient for initial transition planning/care coordination assessment. RN CM introduced self and role at [facility]. Patient lying in bed, alert and oriented. Patient willing to participate in assessment and is able to answer all questions appropriately. Care providers, pharmacy, and demographics verified. Patient wishes to discharge home, denies need for home health at this time. Patient states he has no further needs or concerns at this time. CM to follow for discharge planning needs that may arise. PCP: Lucila Specialists: none Preferred Pharmacy: [facility] Insurance: none Prescription Benefit: none Living Will/HPOA: yes, son Jose Grier LNOK: , son Living Arrangements: Patient lives with in a single floor home with 3 steps to enter the home. Patient states he is independent at home. Transportation: Driving service DME/HHC: Patient states they have a walker at home. Patient denies previous HHC or SNF Disposition Plan: Patient to discharge home with family support and follow-up plans in place. Brittni HERNANDEZN, RN, CM
[2020-10-13] MEDS: Insulin Lispro 100 UNIT/ML INSULN.PEN SC ×3 (11:00→22:04)
[2020-10-13] MEDS: Glucerna Shake 120 ML LIQUID PO ×2 (11:02→17:06)
[2020-10-13 11:36] LABS: Bedside Glucose 202 mg/dL (70-110)
[2020-10-13 12:00] VITALS: BP 139/89; PULSE 53; RESP 16; TEMP 36.9; O2SAT 95
--- NOTE | 2020-10-13 14:06 | PN.HOSP_ITS ---
Subjective Subjective Patient's reports he is having minimal pain. No bowel movements or flatus yet. He is tolerating clear liquids without any nausea. Objective Data Objective Data Vital Signs: Vital Signs Temp Pulse Resp BP Pulse Ox 98.4 F 53 L 16 139/89 H 95 10/13/20 12:00 10/13/20 12:00 10/13/20 12:00 10/13/20 12:00 10/13/20 12:00 Oxygen Flow Rate (L/min) 2 Oxygen Delivery Method Room Air Weight: 100.9 kg Body Mass Index (BMI) 31.0 Intake & Output: Intake and Output for Last 24 Hours 10/11/20 10/12/20 10/13/20 23:59 23:59 23:59 Intake Total 2131.67 / 2131.67 1221.33 / 1221.33 Output Total 2525 / 2525 850 / 850 Balance -393.33 / -393.33 371.33 / 371.33 Lab / Micro Data Result Diagrams: 10/13/20 05:20 10/13/20 05:20 Labs: Laboratory Results - last 24 hr 10/12/20 10/12/20 10/13/20 16:24 20:55 05:20 WBC 10.7 RBC 4.30 L Hgb 12.4 L Hct 39.0 L MCV 90.7 MCH 28.8 MCHC 31.8 L RDW Std Deviation 47.9 H RDW Coeff of Paulie 14.2 Plt Count 172 MPV 9.4 Sodium Potassium Chloride Carbon Dioxide Anion Gap BUN Creatinine Estim Creat Clear Calc Est GFR (MDRD) Af Amer Est GFR (MDRD) Non-Af BUN/Creatinine Ratio Glucose Calcium POC Glucose 176 H 257 H 10/13/20 10/13/20 10/13/20 05:20 06:01 10:59 WBC RBC Hgb Hct MCV MCH MCHC RDW Std Deviation RDW Coeff of Paulie Plt Count MPV Sodium 140 Potassium 3.7 Chloride 106 Carbon Dioxide 28.0 Anion Gap 6 BUN 11 Creatinine 0.88 Estim Creat Clear Calc 76.06 Est GFR (MDRD) Af Amer 107 Est GFR (MDRD) Non-Af 89 BUN/Creatinine Ratio 12.4 Glucose 114 H Calcium 8.3 L POC Glucose 132 H 202 H Micro: Microbiology 10/06/20 09:20 Interface Orders SARS-CoV-2 Antigen (Rapid) - Final Physical Exam Const alert, oriented x3 and no apparent distress Constitutional Narrative: Very pleasant older white male, sitting up in bed, watching television, appears comfortable Exam Limitations: no limitations Nutritional Appearance: overweight HEENT head/scalp atraumatic Head and Scalp: normocephalic Resp normal respiratory effort, no retractions, no use of accessory muscles and clear to auscultation bilaterally Auscultation: Negative for crackles, rales, rhonchi or wheezes Cardio regular rate, regular rhythm, S1 normal heart sound, S2 normal heart sound, no murmurs, no rub, no gallops, no clicks and no JVD GI soft to palpation GI Narrative: Postoperative abdomen, incisions are clean and dry, no drainage, mild tenderness, abdominal binder is in place but removed without pain Auscultation: hypoactive bowel sounds Extremity normal to inspection and no clubbing, cyanosis or edema Peripheral Pulses: Yes pulses 2+ throughout Neuro oriented x3 and moves all extremities Sensorium / Orientation: awake, alert, oriented to person, oriented to place and oriented to time Speech: speech normal Psych affect normal Assessment & Plan Assessment/Plan (1) Colon adenocarcinoma: (2) Status post colectomy: (3) Diabetes: (4) Urinary outflow obstruction: (5) Systolic hypertension: 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 intake increases -Patient is now on a clear liquid diet BPH -Continue Flomax DVT prophylaxis -Enoxaparin 40 mg daily Visit Charges Inpatient E&M: 91454 [facility] Hosp L2
[2020-10-13 14:23] VITALS: BP 174/65; PULSE 50; RESP 16; TEMP 36.8; O2SAT 95
[2020-10-13 16:51] LABS: Bedside Glucose 208 mg/dL (70-110)
[2020-10-13] MEDS: Tamsulosin HCl 0.4 MG Capsule PO (17:07)
[2020-10-13 20:57] VITALS: BP 154/72; PULSE 57; RESP 20; TEMP 36.6; O2SAT 94
[2020-10-13] MEDS: Ibuprofen 400 MG Tablet PO (22:02)
[2020-10-13] MEDS: Atorvastatin Calcium 10 MG Tablet PO (22:03)
[2020-10-13 22:10] LABS: Bedside Glucose 187 mg/dL (70-110)
[2020-10-14] MEDS: Acetaminophen 500 MG Tablet 1000 MG PO ×2 (01:30→15:14)
[2020-10-14 03:46] VITALS: BP 150/74; PULSE 58; RESP 16; TEMP 36.6; O2SAT 94
[2020-10-14 06:02] LABS: Absolute Lymphocyte Count 2.17 X10^3/uL (0.83-4.51); Basophil# 0.04 X10^3/uL; Basophil% 0.4 % (0-1); Eosinophil# 0.06 X10^3/uL; Eosinophils% 0.6 % (0-5); Hematocrit 38.7 % (40-54); Hemoglobin 12.4 g/dL (13.0-16.5); Lymphocyte # 2.17 X10^3/ul (0.83-4.51); Lymphocyte % 23.4 % (19-41); Mean Corpuscular Hgb 28.8 pg (27.0-32.0); Mean Corpuscular Volume 89.8 fL (80-94); Mean Platelet Vol. 9.7 fl (6.2-12.0); Monocyte# 1.01 X10^3/uL; Monocyte% 10.9 % (0-10); NRBC Flagged by Analyzer 0 % (0-5); Neutrophil # 5.98 X10^3/uL (2.7-7.7); Neutrophil % 64.4 % (47-70); Platelet Count 167 K/mm3 (150-450); RBC Distribution Width CV 13.7 % (11.6-14.6); RBC Distribution Width SD 45.1 fl (35.1-43.9); Red Blood Count 4.31 M/mm3 (4.6-6.2); White Blood Count 9.3 K/mm3 (4.4-11.0)
[2020-10-14 06:24] LABS: Anion Gap 6 (5-15); BUN 10 mg/dL (7-18); BUN/Creat Ratio 13.5 RATIO (10-20); Calcium,Total 8.6 mg/dL (8.5-10.1); Chloride 105 mmol/L (98-107); Creatinine, Serum 0.74 mg/dL (0.70-1.30); EST Glomerular Filtration Rate 109 mL/min (>60); Est Glom Filt Rate - Afr Amer 132 mL/min (>60); Estimated Creatinine Clearance 66.93 ml/min; Glucose 148 mg/dL (74-106); Potassium 3.9 mmol/L (3.5-5.1); Sodium Level 139 mmol/L (136-145)
[2020-10-14] MEDS: Insulin Lispro 100 UNIT/ML INSULN.PEN SC ×4 (06:43→21:04)
[2020-10-14 07:10] LABS: Bedside Glucose 170 mg/dL (70-110)
[2020-10-14 07:35] VITALS: O2SAT 94
--- NOTE | 2020-10-14 07:50 | PN.SURG_ITS ---
Subjective Subjective Patient tolerating clears, still has not had any flatus. Patient has been ambulating up in the chair and chewing gum. Objective Data Objective Data Vital Signs: Vital Signs Temp Pulse Resp BP Pulse Ox 97.8 F 58 L 16 150/74 H 94 10/14/20 03:46 10/14/20 03:46 10/14/20 03:46 10/14/20 03:46 10/14/20 07:35 Oxygen Flow Rate (L/min) 2 Oxygen Delivery Method Room Air Weight: 222 lb 7.143 oz Body Mass Index (BMI) 31.0 Intake & Output: Intake and Output for Last 24 Hours 10/12/20 10/13/20 10/14/20 23:59 23:59 23:59 Intake Total 2131.67 / 2131.67 2341.33 / 2341.33 100 / 100 Output Total 2525 / 2525 2900 / 2900 Balance -393.33 / -393.33 -558.67 / -558.67 100 / 100 Lab / Micro Data Result Diagrams: 10/14/20 05:30 10/14/20 05:30 Labs: Laboratory Results - last 24 hr 10/13/20 10/13/20 10/13/20 10:59 16:45 22:02 WBC RBC Hgb Hct MCV MCH MCHC RDW Std Deviation RDW Coeff of Paulie Plt Count MPV Immature Gran % (Auto) Neut % (Auto) Lymph % (Auto) [place] % (Auto) Eos % (Auto) Baso % (Auto) Absolute Neuts (auto) Absolute Lymphs (auto) Nucleated RBC % Sodium Potassium Chloride Carbon Dioxide Anion Gap BUN Creatinine Estim Creat Clear Calc Est GFR (MDRD) Af Amer Est GFR (MDRD) Non-Af BUN/Creatinine Ratio Glucose Calcium POC Glucose 202 H 208 H 187 H 10/14/20 10/14/20 10/14/20 05:30 05:30 06:41 WBC 9.3 RBC 4.31 L Hgb 12.4 L Hct 38.7 L MCV 89.8 MCH 28.8 MCHC 32.0 RDW Std Deviation 45.1 H RDW Coeff of Paulie 13.7 Plt Count 167 MPV 9.7 Immature Gran % (Auto) 0.300 Neut % (Auto) 64.4 Lymph % (Auto) 23.4 [place] % (Auto) 10.9 H Eos % (Auto) 0.6 Baso % (Auto) 0.4 Absolute Neuts (auto) 6.0 Absolute Lymphs (auto) 2.17 Nucleated RBC % 0 Sodium 139 Potassium 3.9 Chloride 105 Carbon Dioxide 28.0 Anion Gap 6 BUN 10 Creatinine 0.74 Estim Creat Clear Calc 66.93 Est GFR (MDRD) Af Amer 132 Est GFR (MDRD) Non-Af 109 BUN/Creatinine Ratio 13.5 Glucose 148 H Calcium 8.6 POC Glucose 170 H Micro: Microbiology 10/06/20 09:20 Interface Orders SARS-CoV-2 Antigen (Rapid) - Final Physical Exam Resp normal respiratory effort Cardio regular rate GI GI Narrative: Abdomen: Soft, nondistended, tender near incision's dressed clean dry and intact--abdominal binder in place, no peritoneal signs Assessment & Plan Assessment/Plan (1) Status post colectomy: PLAN: Postop day 2 status post right hemicolectomy Continue clears, await flatus then will advance to transitional. Pain controlled with Tylenol Lovenox for DVT prophylaxis Continue ambulating up to chair Appreciate medicine's assistance with diabetic management Olinda Acevedo M.D. Pager: [phone] [facility] [address] [place] [address], [facility], [address] [place] [address] Office: [phone]
[2020-10-14 10:07] VITALS: BP 177/84; PULSE 61; RESP 20; TEMP 36.7; O2SAT 95
[2020-10-14] MEDS: Enoxaparin 40 MG/0.4 ML Syringe SC (10:10)
[2020-10-14] MEDS: Glucerna Shake 120 ML LIQUID PO (10:10)
[2020-10-14] MEDS: Lisinopril 5 MG Tablet PO ×2 (10:10→11:29)
[2020-10-14] MEDS: Docusate Sodium 100 MG Capsule PO ×2 (10:10→20:14)
--- NOTE | 2020-10-14 10:49 | PN.HOSP_ITS ---
Subjective Subjective Patient states he had some issues with pain overnight. Pain medication was effective in resolving his symptoms though. Still no bowel movement or flatus. No nausea with clear liquids. Objective Data Objective Data Vital Signs: Vital Signs Temp Pulse Resp BP Pulse Ox 98.1 F 61 20 H 177/84 H 95 10/14/20 10:07 10/14/20 10:07 10/14/20 10:07 10/14/20 10:07 10/14/20 10:07 Oxygen Flow Rate (L/min) 2 Oxygen Delivery Method Room Air Weight: 100.9 kg Body Mass Index (BMI) 31.0 Intake & Output: Intake and Output for Last 24 Hours 10/12/20 10/13/20 10/14/20 23:59 23:59 23:59 Intake Total 2131.67 / 2131.67 2341.33 / 2341.33 700 / 700 Output Total 2525 / 2525 2900 / 2900 Balance -393.33 / -393.33 -558.67 / -558.67 700 / 700 Lab / Micro Data Result Diagrams: 10/14/20 05:30 10/14/20 05:30 Labs: Laboratory Results - last 24 hr 10/13/20 10/13/20 10/13/20 10:59 16:45 22:02 WBC RBC Hgb Hct MCV MCH MCHC RDW Std Deviation RDW Coeff of Paulie Plt Count MPV Immature Gran % (Auto) Neut % (Auto) Lymph % (Auto) [place] % (Auto) Eos % (Auto) Baso % (Auto) Absolute Neuts (auto) Absolute Lymphs (auto) Nucleated RBC % Sodium Potassium Chloride Carbon Dioxide Anion Gap BUN Creatinine Estim Creat Clear Calc Est GFR (MDRD) Af Amer Est GFR (MDRD) Non-Af BUN/Creatinine Ratio Glucose Calcium POC Glucose 202 H 208 H 187 H 10/14/20 10/14/20 10/14/20 05:30 05:30 06:41 WBC 9.3 RBC 4.31 L Hgb 12.4 L Hct 38.7 L MCV 89.8 MCH 28.8 MCHC 32.0 RDW Std Deviation 45.1 H RDW Coeff of Paulie 13.7 Plt Count 167 MPV 9.7 Immature Gran % (Auto) 0.300 Neut % (Auto) 64.4 Lymph % (Auto) 23.4 [place] % (Auto) 10.9 H Eos % (Auto) 0.6 Baso % (Auto) 0.4 Absolute Neuts (auto) 6.0 Absolute Lymphs (auto) 2.17 Nucleated RBC % 0 Sodium 139 Potassium 3.9 Chloride 105 Carbon Dioxide 28.0 Anion Gap 6 BUN 10 Creatinine 0.74 Estim Creat Clear Calc 66.93 Est GFR (MDRD) Af Amer 132 Est GFR (MDRD) Non-Af 109 BUN/Creatinine Ratio 13.5 Glucose 148 H Calcium 8.6 POC Glucose 170 H Micro: Microbiology 10/06/20 09:20 Interface Orders SARS-CoV-2 Antigen (Rapid) - Final Physical Exam Const alert, oriented x3 and no apparent distress Constitutional Narrative: Very pleasant older white male, sitting up in a chair at the bedside, watching television, appears comfortable, frustrated with lack of progress Exam Limitations: no limitations Nutritional Appearance: overweight Resp normal respiratory effort, no retractions, no use of accessory muscles and clear to auscultation bilaterally Auscultation: Negative for crackles, rales, rhonchi or wheezes Cardio regular rate, regular rhythm, S1 normal heart sound, S2 normal heart sound, no murmurs, no rub, no gallops, no clicks and no JVD GI soft to palpation GI Narrative: Bowel sounds remain hypoactive, abdominal binder remains in place Auscultation: hypoactive bowel sounds Extremity normal to inspection and no clubbing, cyanosis or edema Neuro oriented x3 and moves all extremities Sensorium / Orientation: awake, alert, oriented to person, oriented to place and oriented to time Speech: speech normal Psych affect normal Assessment & Plan Assessment/Plan (1) Colon adenocarcinoma: (2) Status post colectomy: (3) Diabetes: (4) Urinary outflow obstruction: (5) Systolic hypertension: 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 -Management per primary -Clear liquid diet -Remains without flatus or bowel movement -Advance diet once this occurs -Continue pain medication as needed and bowel regimen -Patient has been compliant with ambulation and out of bed Acute hypoxic respiratory insufficiency secondary to atelectasis -Resolved -SpO2 remains 94 to 95% on room air Hypertension -Blood pressure has been elevated -Given extra dose of lisinopril 5 mg today and increase dose to 10 mg tomorrow Hyperlipidemia -Continue simvastatin DM-2 -Patient is on Metformin, Actos, and Lantus 40 units nightly -Continue with Lantus to 25 units until p.o. intake increases -Home dose is 40 units -Patient is now on a clear liquid diet BPH -Continue Flomax DVT prophylaxis -Enoxaparin 40 mg daily Visit Charges Inpatient E&M: 58128 Subs Hosp L2
[2020-10-14 11:35] LABS: Bedside Glucose 215 mg/dL (70-110)
[2020-10-14 15:11] VITALS: BP 155/74; PULSE 74; RESP 20; TEMP 37.1; O2SAT 96
[2020-10-14] MEDS: Ondansetron ODT 4 MG Tablet PO (16:44)
[2020-10-14 16:46] LABS: Bedside Glucose 216 mg/dL (70-110)
[2020-10-14] MEDS: Bisacodyl 10 MG Suppository RC (16:48)
[2020-10-14] MEDS: Tamsulosin HCl 0.4 MG Capsule PO (18:23)
[2020-10-14] MEDS: Ibuprofen 400 MG Tablet PO (18:26)
--- NOTE | 2020-10-14 19:17 | RAD_ITS ---
STUDY: X-RAY - ABDOMEN/PELVIS REASON FOR EXAM: Male, 75 years old. Nausea -- wet read to MD please TECHNIQUE: 3 AP supine views of the abdomen and pelvis. COMPARISON: None. FINDINGS: Minimal bibasilar opacities are nonspecific, atelectasis versus consolidation. There is a paralytic ileus of the small intestine with mild gaseous distention. There is no demonstrated free abdominal air. The visualized liver, spleen and kidneys are grossly normal in size and morphology. Normal soft tissue structures. Bilateral hip arthrosis, mild to moderate. RAD/Abdomen Single View (Portable) IMPRESSION: Gas-filled mildly distended loops of small bowel throughout the abdomen in a nonspecific pattern may represent an ileus in the appropriate clinical setting. Minimal bibasilar opacities are nonspecific, atelectasis versus consolidation. Electronically Signed: Ryan Martinez MD at 21:09 EDT Tel , Service support ,
[2020-10-14 20:03] VITALS: BP 154/80; PULSE 71; RESP 18; TEMP 37; O2SAT 95
[2020-10-14] MEDS: Atorvastatin Calcium 10 MG Tablet PO (20:14)
[2020-10-14 21:16] LABS: Bedside Glucose 207 mg/dL (70-110)
[2020-10-15 03:41] VITALS: BP 150/73; PULSE 66; RESP 18; TEMP 36.8; O2SAT 94
[2020-10-15] MEDS: Insulin Lispro 100 UNIT/ML INSULN.PEN SC ×4 (06:46→21:57)
[2020-10-15 07:00] LABS: Bedside Glucose 174 mg/dL (70-110)
[2020-10-15 07:55] VITALS: O2SAT 94
[2020-10-15] MEDS: Glucerna Shake 120 ML LIQUID PO ×3 (08:00→17:12)
[2020-10-15] MEDS: Docusate Sodium 100 MG Capsule PO ×2 (08:00→21:58)
[2020-10-15] MEDS: Acetaminophen 500 MG Tablet 1000 MG PO ×2 (08:00→22:01)
--- NOTE | 2020-10-15 08:09 | PN.SURG_ITS ---
Subjective Subjective Patient denies any nausea, no flatus yet. Patient has been walking and chewing gum. KUB did show gas in the small bowel not much in the colon yesterday. Objective Data Objective Data Vital Signs: Vital Signs Temp Pulse Resp BP Pulse Ox 98.2 F 66 18 150/73 H 94 10/15/20 03:41 10/15/20 03:41 10/15/20 03:41 10/15/20 03:41 10/15/20 07:55 Oxygen Flow Rate (L/min) 2 Oxygen Delivery Method Room Air Weight: 222 lb 7.143 oz Body Mass Index (BMI) 31.0 Intake & Output: Intake and Output for Last 24 Hours 10/13/20 10/14/20 10/15/20 23:59 23:59 23:59 Intake Total 2341.33 / 2341.33 1180 / 1580 800 / 800 Output Total 2900 / 2900 Balance -558.67 / -558.67 1180 / 1580 800 / 800 Lab / Micro Data Result Diagrams: 10/14/20 05:30 10/14/20 05:30 Labs: Laboratory Results - last 24 hr 10/14/20 10/14/20 10/14/20 11:26 16:38 21:03 POC Glucose 215 H 216 H 207 H 10/15/20 06:44 POC Glucose 174 H Micro: Microbiology 10/06/20 09:20 Interface Orders SARS-CoV-2 Antigen (Rapid) - Final Radiography Diagnostic Testing: Radiology Impression KUB X-Ray 10/14/20 19:17 IMPRESSION: Gas-filled mildly distended loops of small bowel throughout the abdomen in a nonspecific pattern may represent an ileus in the appropriate clinical setting. Minimal bibasilar opacities are nonspecific, atelectasis versus consolidation. Electronically Signed: Ryan Martinez MD at 21:09 EDT Tel , Service support , Physical Exam Resp normal respiratory effort Cardio regular rate GI GI Narrative: Abdomen: Soft, nondistended, tender near incision's dressed clean dry and intact--abdominal binder in place, no peritoneal signs Assessment & Plan Assessment/Plan (1) Status post colectomy: PLAN: Postop day 3 status post right hemicolectomy Continue clears, await flatus then will advance to transitional. Patient does appear to have postop ileus currently per KUB Pain controlled with Tylenol Lovenox for DVT prophylaxis Continue ambulating up to chair Appreciate medicine's assistance with diabetic management Olinda Acevedo M.D. Pager: [phone] [facility] [address] [place] [address], [facility], [address] [place] [address] Office: [phone]
[2020-10-15 09:39] VITALS: BP 144/65; PULSE 68; RESP 20; TEMP 36.9; O2SAT 96
[2020-10-15] MEDS: Bisacodyl 10 MG Suppository RC (09:41)
[2020-10-15] MEDS: Ibuprofen 400 MG Tablet PO (09:41)
[2020-10-15] MEDS: Enoxaparin 40 MG/0.4 ML Syringe SC (09:41)
[2020-10-15] MEDS: Lisinopril 10 MG Tablet PO (09:41)
--- NOTE | 2020-10-15 09:52 | PCM.PN.HOSP ---
Subjective Subjective Patient states he still not having flatus or bowel movements. Continues to deny nausea with clear liquid diet. Has been ambulatory. Reports pain is fairly well controlled. Objective Data Objective Data Vital Signs: Vital Signs Temp Pulse Resp BP Pulse Ox 98.5 F 68 20 H 144/65 H 96 10/15/20 09:39 10/15/20 09:39 10/15/20 09:39 10/15/20 09:39 10/15/20 09:39 Oxygen Flow Rate (L/min) 2 Oxygen Delivery Method Room Air Weight: 100.9 kg Body Mass Index (BMI) 31.0 Intake & Output: Intake and Output for Last 24 Hours 10/13/20 10/14/20 10/15/20 23:59 23:59 23:59 Intake Total 2341.33 / 2341.33 1180 / 1580 1450 / 1450 Output Total 2900 / 2900 Balance -558.67 / -558.67 1180 / 1580 1450 / 1450 Lab / Micro Data Result Diagrams: 10/14/20 05:30 10/14/20 05:30 Labs: Laboratory Results - last 24 hr 10/14/20 10/14/20 10/14/20 11:26 16:38 21:03 POC Glucose 215 H 216 H 207 H 10/15/20 06:44 POC Glucose 174 H Micro: Microbiology 10/06/20 09:20 Interface Orders SARS-CoV-2 Antigen (Rapid) - Final Radiography Diagnostic Testing: Radiology Impression KUB X-Ray 10/14/20 19:17 IMPRESSION: Gas-filled mildly distended loops of small bowel throughout the abdomen in a nonspecific pattern may represent an ileus in the appropriate clinical setting. Minimal bibasilar opacities are nonspecific, atelectasis versus consolidation. Electronically Signed: Ryan Martinez MD at 21:09 EDT Tel , Service support , Physical Exam Const alert, oriented x3 and no apparent distress Constitutional Narrative: Very pleasant older white male, sitting up in a chair at the bedside, watching television, appears comfortable Exam Limitations: no limitations Nutritional Appearance: overweight HEENT head/scalp atraumatic Head and Scalp: normocephalic Resp normal respiratory effort, no retractions, no use of accessory muscles and clear to auscultation bilaterally Auscultation: Negative for crackles, rales, rhonchi or wheezes Cardio regular rate, regular rhythm, S1 normal heart sound, S2 normal heart sound, no murmurs, no rub, no gallops, no clicks and no JVD GI soft to palpation GI Narrative: Bowel sounds remain hypoactive, abdominal binder remains in place, upon removal of binder incisions are still dressed and dressings are clean and dry, ecchymosis surrounding incision sites Auscultation: hypoactive bowel sounds Extremity normal to inspection and no clubbing, cyanosis or edema Neuro oriented x3 and moves all extremities Sensorium / Orientation: awake, alert, oriented to person, oriented to place and oriented to time Speech: speech normal Psych affect normal Assessment & Plan Assessment/Plan (1) Colon adenocarcinoma: (2) Status post colectomy: (3) Diabetes: (4) Urinary outflow obstruction: (5) Systolic hypertension: (6) Ileus following gastrointestinal surgery: 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 -Management per primary -Clear liquid diet -Still remains without flatus or bowel movement -Advance diet once this occurs -Continue pain medication as needed and bowel regimen -Patient has been compliant with ambulation and out of bed Postoperative ileus -Await return of bowel function -Explained to patient that this is not uncommon after bowel surgery -He has been compliant with ambulation and has not been using excessive amount of narcotics Acute hypoxic respiratory insufficiency secondary to atelectasis -Resolved -SpO2 remains 96% on room air Hypertension -Lisinopril was increased to 10 mg today -Blood pressures appear to be better this morning -Continue to monitor and titrate as needed Hyperlipidemia -Continue simvastatin DM-2 -Patient is on Metformin, Actos, and Lantus 40 units nightly -Increase to Lantus to 30 units until p.o. intake increases -Home dose is 40 units -Patient remains on a clear liquid diet BPH -Continue Flomax DVT prophylaxis -Enoxaparin 40 mg daily Visit Charges Inpatient E&M: 94085 [facility] Hosp L2
[2020-10-15 11:40] LABS: Bedside Glucose 248 mg/dL (70-110)
--- NOTE | 2020-10-15 13:59 | RAD_ITS ---
STUDY: X-RAY - ABDOMEN/PELVIS REASON FOR EXAM: Male, 75 years old. - Flatus/ tinkling bowel sounds L abd, POD #3 TECHNIQUE: Two AP supine views of the abdomen and pelvis. COMPARISON: Prior day. FINDINGS: There is no demonstrated free abdominal air. Similar diffuse gaseously distended loops of large and small bowel in a nonspecific pattern, ileus versus obstruction as clinically indicated. Normal soft tissue structures. Normal visualized osseous structures. RAD/Abdomen Single View (Portable) IMPRESSION: Similar diffuse gaseously distended loops of large and small bowel in a nonspecific pattern, ileus versus obstruction as clinically indicated. Electronically Signed: Ryan Martinez MD at 15:26 EDT Tel , Service support ,
[2020-10-15 16:46] VITALS: BP 149/84; PULSE 53; RESP 18; TEMP 36.8; O2SAT 96
[2020-10-15] MEDS: Tamsulosin HCl 0.4 MG Capsule PO (17:09)
[2020-10-15 17:15] LABS: Bedside Glucose 175 mg/dL (70-110)
[2020-10-15 21:45] VITALS: BP 163/85; PULSE 71; RESP 18; TEMP 36.9; O2SAT 93
[2020-10-15] MEDS: Atorvastatin Calcium 10 MG Tablet PO (21:58)
[2020-10-15 22:06] LABS: Bedside Glucose 208 mg/dL (70-110)
[2020-10-16 04:19] VITALS: BP 124/72; PULSE 81; RESP 18; TEMP 36.8; O2SAT 93
[2020-10-16] MEDS: Ibuprofen 400 MG Tablet PO (04:27)
[2020-10-16] MEDS: Insulin Lispro 100 UNIT/ML INSULN.PEN SC ×3 (05:58→16:42)
[2020-10-16 06:11] LABS: Bedside Glucose 176 mg/dL (70-110)
[2020-10-16 06:43] LABS: Absolute Lymphocyte Count 1.76 X10^3/uL (0.83-4.51); Absolute Neutrophil Count 5.3 X10^3/uL (2.0-7.7); Basophil# 0.04 X10^3/uL; Basophil% 0.5 % (0-1); Eosinophil# 0.15 X10^3/uL; Eosinophils% 1.9 % (0-5); Hematocrit 41.6 % (40-54); Hemoglobin 13.4 g/dL (13.0-16.5); Lymphocyte # 1.76 X10^3/ul (0.83-4.51); Mean Corp Hgb Conc 32.2 g/dL (32-36); Mean Corpuscular Hgb 28.7 pg (27.0-32.0); Mean Corpuscular Volume 89.1 fL (80-94); Mean Platelet Vol. 9.8 fl (6.2-12.0); Monocyte# 0.68 X10^3/uL; Monocyte% 8.5 % (0-10); NRBC Flagged by Analyzer 0 % (0-5); Neutrophil # 5.34 X10^3/uL (2.7-7.7); Neutrophil % 66.6 % (47-70); Platelet Count 202 K/mm3 (150-450); RBC Distribution Width CV 13.3 % (11.6-14.6); RBC Distribution Width SD 43.6 fl (35.1-43.9); Red Blood Count 4.67 M/mm3 (4.6-6.2)
[2020-10-16 07:08] LABS: Anion Gap 8 (5-15); BUN 12 mg/dL (7-18); BUN/Creat Ratio 15.6 RATIO (10-20); Calcium,Total 8.9 mg/dL (8.5-10.1); Chloride 104 mmol/L (98-107); Creatinine, Serum 0.77 mg/dL (0.70-1.30); EST Glomerular Filtration Rate 105 mL/min (>60); Est Glom Filt Rate - Afr Amer 127 mL/min (>60); Estimated Creatinine Clearance 66.93 ml/min; Glucose 156 mg/dL (74-106); Phosphorus 4.1 mg/dL (2.5-4.9); Sodium Level 139 mmol/L (136-145)
[2020-10-16 07:30] VITALS: O2SAT 93
[2020-10-16 07:37] VITALS: BP 128/72; PULSE 63; RESP 16; TEMP 36.8; O2SAT 94
[2020-10-16] MEDS: Acetaminophen 500 MG Tablet 1000 MG PO ×2 (07:50→18:41)
[2020-10-16] MEDS: Glucerna Shake 120 ML LIQUID PO ×3 (08:22→16:41)
--- NOTE | 2020-10-16 09:04 | RAD_ITS ---
STUDY: X-RAY - ABDOMEN/PELVIS REASON FOR EXAM: Male, 75 years old. ileus TECHNIQUE: Single AP view of the abdomen / pelvis. COMPARISON: 10/15/2020. FINDINGS: Normal visualized lung bases. There is mildly prominent bowel gas pattern throughout the large bowel, stable and with no definite dilated loops of small bowel. Findings are most consistent with continued colonic ileus. There is no demonstrated free abdominal air. The visualized liver, spleen and kidneys are grossly normal in size and morphology. Normal soft tissue structures. There are diffuse degenerative changes of the visualized lumbar spine. RAD/Abdomen Single View (Portable) IMPRESSION: Continued probable ileus. Electronically Signed: Ivan Parada MD at 16:28 EDT , Service support ,
--- NOTE | 2020-10-16 09:05 | PCM.PN.SRG ---
Subjective Subjective Patient still tolerating clears ambulating denies any nausea only minimal pain at incision controlled with Tylenol, no flatus Objective Data Objective Data Vital Signs: Vital Signs Temp Pulse Resp BP Pulse Ox 98.2 F 63 16 128/72 H 94 10/16/20 07:37 10/16/20 07:37 10/16/20 07:37 10/16/20 07:37 10/16/20 07:37 Oxygen Flow Rate (L/min) 2 Oxygen Delivery Method Room Air Weight: 222 lb 7.143 oz Body Mass Index (BMI) 31.0 Intake & Output: Intake and Output for Last 24 Hours 10/14/20 10/15/20 10/16/20 23:59 23:59 23:59 Intake Total 1180 / 1580 2049 400 / 400 Balance 1180 / 1580 2049 400 / 400 Lab / Micro Data Result Diagrams: 10/16/20 05:50 10/16/20 05:50 Labs: Laboratory Results - last 24 hr 10/15/20 10/15/20 10/15/20 11:27 17:08 21:56 WBC RBC Hgb Hct MCV MCH MCHC RDW Std Deviation RDW Coeff of Paulie Plt Count MPV Immature Gran % (Auto) Neut % (Auto) Lymph % (Auto) [place] % (Auto) Eos % (Auto) Baso % (Auto) Absolute Neuts (auto) Absolute Lymphs (auto) Nucleated RBC % Sodium Potassium Chloride Carbon Dioxide Anion Gap BUN Creatinine Estim Creat Clear Calc Est GFR (MDRD) Af Amer Est GFR (MDRD) Non-Af BUN/Creatinine Ratio Glucose Calcium Phosphorus Magnesium POC Glucose 248 H 175 H 208 H 10/16/20 10/16/20 10/16/20 05:50 05:50 05:56 WBC 8.0 RBC 4.67 Hgb 13.4 Hct 41.6 MCV 89.1 MCH 28.7 MCHC 32.2 RDW Std Deviation 43.6 RDW Coeff of Paulie 13.3 Plt Count 202 MPV 9.8 Immature Gran % (Auto) 0.500 Neut % (Auto) 66.6 Lymph % (Auto) 22.0 [place] % (Auto) 8.5 Eos % (Auto) 1.9 Baso % (Auto) 0.5 Absolute Neuts (auto) 5.3 Absolute Lymphs (auto) 1.76 Nucleated RBC % 0 Sodium 139 Potassium 4.0 Chloride 104 Carbon Dioxide 27.0 Anion Gap 8 BUN 12 Creatinine 0.77 Estim Creat Clear Calc 66.93 Est GFR (MDRD) Af Amer 127 Est GFR (MDRD) Non-Af 105 BUN/Creatinine Ratio 15.6 Glucose 156 H Calcium 8.9 Phosphorus 4.1 Magnesium 2.0 POC Glucose 176 H Micro: Microbiology 10/06/20 09:20 Interface Orders SARS-CoV-2 Antigen (Rapid) - Final Radiography Diagnostic Testing: Radiology Impression KUB X-Ray 10/15/20 13:59 IMPRESSION: Similar diffuse gaseously distended loops of large and small bowel in a nonspecific pattern, ileus versus obstruction as clinically indicated. Electronically Signed: Ryan Martinez MD at 15:26 EDT Tel , Service support , Physical Exam Resp normal respiratory effort Cardio regular rate GI GI Narrative: Abdomen: Soft, nondistended, tender near incision's dressed clean dry and intact, no peritoneal signs Assessment & Plan Assessment/Plan (1) Status post colectomy: PLAN: Postop day 4 status post right hemicolectomy Continue clears, await flatus then will advance to transitional. Patient does appear to have postop ileus we will recheck KUB yesterday gas was in the transverse colon Pain controlled with Tylenol Lovenox for DVT prophylaxis Continue ambulating up to chair Appreciate medicine's assistance with diabetic management Olinda Acevedo M.D. Pager: [phone] [facility] [address] [place] [address], [facility], [address] [place] [address] Office: [phone]
[2020-10-16] MEDS: Lisinopril 10 MG Tablet PO (10:27)
[2020-10-16] MEDS: Docusate Sodium 100 MG Capsule PO (10:27)
[2020-10-16] MEDS: Enoxaparin 40 MG/0.4 ML Syringe SC (10:27)
--- NOTE | 2020-10-16 10:34 | PCM.DC.SUM ---
Providers Date of Admission: 10/12/20 Primary Care Physician: Dr. Humberto Gaytan, Consultations 10/12/20 13:53 Consult: Hospitalist Routine Consulting Provider: Stephanie Sharp Reason for Consult: medical management EMERGENT Consult: No MD Notified: Yes Date Notified:: 10/12/20 Time Notified: 13:54 Method of Notification: Verbal Reason For Visit: RT LAP NAZARIO COLECTOMY Diagnosis Discharge Diagnosis (1) Status post colectomy: Status: Acute Code(s): Z90.49 - Acquired absence of other specified parts of digestive tract (2) Colon adenocarcinoma: Status: Acute Code(s): C18.9 - Malignant neoplasm of colon, unspecified Medications at Discharge Home Medications aspirin 81 mg tablet,delayed release 81 mg PO DAILY 09/14/20 glimepiride 2 mg tablet 2 mg PO BID tablet 09/14/20 insulin glargine 100 unit/mL (3 mL) subcutaneous pen 40 unit SC QHS ml 09/14/20 lisinopril 5 mg tablet 5 mg PO DAILY tablet 09/14/20 metformin 1,000 mg tablet 1,000 mg PO BID tablet 09/14/20 pioglitazone 45 mg tablet 45 mg PO DAILY tablet 09/14/20 simvastatin 20 mg tablet 20 mg PO QHS tablet 09/14/20 tamsulosin 0.4 mg capsule 0.4 mg PO DAILY cap 09/14/20 acetaminophen 1,000 mg PO Q8H PRN PRN #0 tab 10/16/20 ibuprofen 400 mg PO Q6H PRN PRN #0 tab 10/16/20 Hospital Course Operations colectomy (Laparoscopic right hemicolectomy) Procedures None Summary of Care Provided Minutes Spent on Discharge: 15 Hospital Course: Patient was admitted after his laparoscopic right hemicolectomy. Postoperatively patient did well was ambulating tolerating clears. Patient did have a postoperative ileus for a few days. Once patient began to have flatus he was able to be transition to a transitional diet and be DC'd home after tolerating. 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 Physical Exam Const alert, oriented x3 and no apparent distress Resp normal respiratory effort Cardio regular rate GI GI Narrative: Abdomen: Soft, nondistended, tender near incision's dressed clean dry and intact, no peritoneal signs Neuro CN's II-XII intact bilaterally ABG / Lab / Microbiology Data Result Diagrams: 10/16/20 05:50 10/16/20 05:50 Laboratory: Laboratory Results - last 24 hr 10/15/20 10/15/20 10/15/20 11:27 17:08 21:56 WBC RBC Hgb Hct MCV MCH MCHC RDW Std Deviation RDW Coeff of Paulie Plt Count MPV Immature Gran % (Auto) Neut % (Auto) Lymph % (Auto) [place] % (Auto) Eos % (Auto) Baso % (Auto) Absolute Neuts (auto) Absolute Lymphs (auto) Nucleated RBC % Sodium Potassium Chloride Carbon Dioxide Anion Gap BUN Creatinine Estim Creat Clear Calc Est GFR (MDRD) Af Amer Est GFR (MDRD) Non-Af BUN/Creatinine Ratio Glucose Calcium Phosphorus Magnesium POC Glucose 248 H 175 H 208 H 10/16/20 10/16/20 10/16/20 05:50 05:50 05:56 WBC 8.0 RBC 4.67 Hgb 13.4 Hct 41.6 MCV 89.1 MCH 28.7 MCHC 32.2 RDW Std Deviation 43.6 RDW Coeff of Paulie 13.3 Plt Count 202 MPV 9.8 Immature Gran % (Auto) 0.500 Neut % (Auto) 66.6 Lymph % (Auto) 22.0 [place] % (Auto) 8.5 Eos % (Auto) 1.9 Baso % (Auto) 0.5 Absolute Neuts (auto) 5.3 Absolute Lymphs (auto) 1.76 Nucleated RBC % 0 Sodium 139 Potassium 4.0 Chloride 104 Carbon Dioxide 27.0 Anion Gap 8 BUN 12 Creatinine 0.77 Estim Creat Clear Calc 66.93 Est GFR (MDRD) Af Amer 127 Est GFR (MDRD) Non-Af 105 BUN/Creatinine Ratio 15.6 Glucose 156 H Calcium 8.9 Phosphorus 4.1 Magnesium 2.0 POC Glucose 176 H Microbiology: Microbiology 10/06/20 09:20 Interface Orders SARS-CoV-2 Antigen (Rapid) - Final Radiography Diagnostic Testing: Radiology Impression KUB X-Ray 10/15/20 13:59 IMPRESSION: Similar diffuse gaseously distended loops of large and small bowel in a nonspecific pattern, ileus versus obstruction as clinically indicated. Electronically Signed: Ryan Martinez MD at 15:26 EDT Tel , Service support , D/C Instructions Discharge Diet: - (Transitional diet, low fiber for about a week) Discharge Activity: May Shower Call your doctor if your incision/area has: Continuous Slow Oozing, Sudden Increased Bleeding, Increased Pain/ Swelling, Increased Redness, Foul Smelling Discharge and Swelling at the incision site Call your doctor if you observe: Fever of 101 or Higher Remove Dressing in: 1 day Cleanse incision/area with: Soap & Water Additional Dressing/Incision Instructions: Steri-Strips should fall off in 7 to 10 days from surgery if they do not okay to remove Please Follow Up With: Olinda Acevedo MD When: Call the office for a follow-up appointment 2 weeks; after 5 PM and on the weekends call [phone] with any concerns. Meaningful Use Info Meaningful Use Diagnoses (Choose all that apply): None applicable Discharge Plan Admission Admit Date/Time: 10/12/20 05:10 Primary Reason for Your Visit: Cecal adenocarcinoma Attending Provider: Olinda Acevedo Primary Care Provider: Humberto Gaytan Consulting Providers: Stephanie Sharp Discharge Orders/Prescriptions Prescriptions: New acetaminophen 500 mg Tablet 1,000 mg PO Q8H PRN PRN (Reason: Pain Score 1-10) Qty: 0 RF: 0 ibuprofen 400 mg Tablet 400 mg PO Q6H PRN PRN (Reason: Pain Score 1-10) Qty: 0 RF: 0 Continued pioglitazone 45 mg tablet 45 mg PO DAILY RF: 0 glimepiride 2 mg tablet 2 mg PO BID RF: 0 tamsulosin 0.4 mg capsule 0.4 mg PO DAILY RF: 0 simvastatin 20 mg tablet 20 mg PO QHS RF: 0 metformin 1,000 mg tablet 1,000 mg PO BID RF: 0 lisinopril 5 mg tablet 5 mg PO DAILY RF: 0 insulin glargine 100 unit/mL (3 mL) insulin pen 40 unit SC QHS RF: 0 aspirin [Adult Low Dose Aspirin] 81 mg tablet,delayed release (DR/EC) 81 mg PO DAILY RF: 0 Discontinued neomycin 500 mg tablet 500 mg PO .COMPLEX RF: 0 metronidazole [Flagyl] 500 mg Tablet 500 mg PO BID RF: 0 Referrals / Follow Up: Humberto Gaytan DO [Primary Care Provider] - Disposition Disposition (needs filled in before D/C Order can be placed): Home, self care
[2020-10-16 11:16] LABS: Bedside Glucose 178 mg/dL (70-110)
--- NOTE | 2020-10-16 11:54 | PCM.PN.HOSP ---
Subjective Subjective Patient reports still no flatus or bowel movement. Still with out nausea despite liquid p.o. intake. Patient has been ambulating around hallways pretty consistently. Objective Data Objective Data Vital Signs: Vital Signs Temp Pulse Resp BP Pulse Ox 98.2 F 63 16 128/72 H 94 10/16/20 07:37 10/16/20 07:37 10/16/20 07:37 10/16/20 07:37 10/16/20 07:37 Oxygen Flow Rate (L/min) 2 Oxygen Delivery Method Room Air Weight: 100.9 kg Body Mass Index (BMI) 31.0 Intake & Output: Intake and Output for Last 24 Hours 10/14/20 10/15/20 10/16/20 23:59 23:59 23:59 Intake Total 1180 / 1580 2049 / 2049 400 / 400 Balance 1180 / 1580 2049 / 2049 400 / 400 Lab / Micro Data Result Diagrams: 10/16/20 05:50 10/16/20 05:50 Labs: Laboratory Results - last 24 hr 10/15/20 10/15/20 10/16/20 17:08 21:56 05:50 WBC 8.0 RBC 4.67 Hgb 13.4 Hct 41.6 MCV 89.1 MCH 28.7 MCHC 32.2 RDW Std Deviation 43.6 RDW Coeff of Paulie 13.3 Plt Count 202 MPV 9.8 Immature Gran % (Auto) 0.500 Neut % (Auto) 66.6 Lymph % (Auto) 22.0 Emanuel % (Auto) 8.5 Eos % (Auto) 1.9 Baso % (Auto) 0.5 Absolute Neuts (auto) 5.3 Absolute Lymphs (auto) 1.76 Nucleated RBC % 0 Sodium Potassium Chloride Carbon Dioxide Anion Gap BUN Creatinine Estim Creat Clear Calc Est GFR (MDRD) Af Amer Est GFR (MDRD) Non-Af BUN/Creatinine Ratio Glucose Calcium Phosphorus Magnesium POC Glucose 175 H 208 H 10/16/20 10/16/20 10/16/20 05:50 05:56 10:53 WBC RBC Hgb Hct MCV MCH MCHC RDW Std Deviation RDW Coeff of Paulie Plt Count MPV Immature Gran % (Auto) Neut % (Auto) Lymph % (Auto) Emanuel % (Auto) Eos % (Auto) Baso % (Auto) Absolute Neuts (auto) Absolute Lymphs (auto) Nucleated RBC % Sodium 139 Potassium 4.0 Chloride 104 Carbon Dioxide 27.0 Anion Gap 8 BUN 12 Creatinine 0.77 Estim Creat Clear Calc 66.93 Est GFR (MDRD) Af Amer 127 Est GFR (MDRD) Non-Af 105 BUN/Creatinine Ratio 15.6 Glucose 156 H Calcium 8.9 Phosphorus 4.1 Magnesium 2.0 POC Glucose 176 H 178 H Micro: Microbiology 10/06/20 09:20 Interface Orders SARS-CoV-2 Antigen (Rapid) - Final Radiography Diagnostic Testing: Radiology Impression KUB X-Ray 10/15/20 13:59 IMPRESSION: Similar diffuse gaseously distended loops of large and small bowel in a nonspecific pattern, ileus versus obstruction as clinically indicated. Electronically Signed: Ryan Martinez MD at 15:26 EDT Tel , Service support , Physical Exam Const alert, oriented x3 and no apparent distress Constitutional Narrative: Very pleasant older white male, sitting up in a chair at the bedside, watching television, appears comfortable Exam Limitations: no limitations Nutritional Appearance: overweight HEENT head/scalp atraumatic Resp normal respiratory effort, no retractions, no use of accessory muscles and clear to auscultation bilaterally Auscultation: Negative for crackles, rales, rhonchi or wheezes Cardio regular rate, regular rhythm, S1 normal heart sound, S2 normal heart sound, no murmurs, no rub, no gallops, no clicks and no JVD GI soft to palpation GI Narrative: Bowel sounds remain hypoactive, abdominal binder remains in place Auscultation: hypoactive bowel sounds Extremity normal to inspection and no clubbing, cyanosis or edema Neuro oriented x3 and moves all extremities Sensorium / Orientation: awake, alert, oriented to person, oriented to place and oriented to time Speech: speech normal Psych affect normal Assessment & Plan Assessment/Plan (1) Colon adenocarcinoma: (2) Status post colectomy: (3) Diabetes: (4) Urinary outflow obstruction: (5) Systolic hypertension: (6) Ileus following gastrointestinal surgery: 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 -Management per primary -Clear liquid diet -Still remains without flatus or bowel movement -Continue pain medication as needed and bowel regimen -Patient has been compliant with ambulation and out of bed Postoperative ileus -Await return of bowel function -Explained to patient that this is not uncommon after bowel surgery -He has been compliant with ambulation and has not been using excessive amount of narcotics Acute hypoxic respiratory insufficiency secondary to atelectasis -Resolved -SpO2 remains 96% on room air Hypertension -Lisinopril was increased to 10 mg today -Blood pressure better with increase in lisinopril dose would discharge home with this dose Hyperlipidemia -Continue simvastatin DM-2 -Patient is on Metformin, Actos, and Lantus 40 units nightly -Blood sugars are better with Lantus dose increased to 30 units -We will continue 30 unit dose until patient is able to take regular diet and then advance BPH -Continue Flomax DVT prophylaxis -Enoxaparin 40 mg daily Visit Charges Inpatient E&M: 14620 [facility] Hosp L2
[2020-10-16 13:45] VITALS: BP 151/81; PULSE 63; RESP 16; TEMP 36.6; O2SAT 96
[2020-10-16] MEDS: Tamsulosin HCl 0.4 MG Capsule PO (16:41)
[2020-10-16 17:10] LABS: Bedside Glucose 168 mg/dL (70-110)
== END 2020-10-16 18:45 | disposition home or self-care (01) | DRG 330 ==
LOC: ACINP 06:44 → MS3 10:55
PROVIDERS: Anesthesiology; Internal Medicine; Admitting Provider Surgery; PCP Physician Assistant; Visit Provider Surgery
PROC: 0DTF4ZZ Resection of Right Large Intestine, Percutaneous Endoscopic Approach (ICD-10-PCS; CPT 44205; principal; 2020-10-12 07:10)
DX: C18.0 Malignant neoplasm of cecum (principal); K56.7 Ileus, unspecified; J98.11 Atelectasis; N13.9 Obstructive and reflux uropathy, unspecified; I10 Essential (primary) hypertension; E11.9 Type 2 diabetes mellitus without complications; G25.81 Restless legs syndrome; Z79.899 Other long term (current) drug therapy; Z79.4 Long term (current) use of insulin; Z79.82 Long term (current) use of aspirin; E78.5 Hyperlipidemia, unspecified; N40.0 Benign prostatic hyperplasia without lower urinary tract symptoms; N40.1 Benign prostatic hyperplasia with lower urinary tract symptoms
CPT/HCPCS: 36415; 74018; 80048; 82962; 83036; 83735; 84100; 85025; 85027; 87426; 88304; 88309; 93005; 94762; 99251; 99406; C9803; J7120; C1760; G0463; J2405; J3490

== ENCOUNTER 2021-08-24 14:39 | Outpatient (CLI) | payer SELFPAY ==
--- NOTE | 2021-08-24 14:48 | CT_ITS ---
STUDY: CT ABDOMEN AND PELVIS WITHOUT CONTRAST REASON FOR EXAM: Male, 76 years old. GROSS HEMATURIA RADIATION DOSAGE (If Supplied By Facility): CTDIvol = ( 17.39 ) mGy, DLP = ( 1249.20 ) mGycm TECHNIQUE: Transaxial images were obtained from the dome of the diaphragm to the symphysis pubis without oral contrast, and without intravenous contrast. Sagittal and coronal images were reconstructed. Individualized dose optimization techniques were used for this CT. COMPARISON: Comparison is made with prior examination of 09/23/2020. FINDINGS: Mild increased markings at the lung bases suggestive of scarring. Coronary artery calcification. Normal liver. Normal gallbladder and extrahepatic biliary system. Normal spleen. Normal pancreas. Normal bilateral adrenal glands. Stable 1.4 cm cyst in the anterior lateral aspect of the right kidney. Normal left kidney. Normal visualized stomach. Surgical anastomosis seen in a mid jejunal loop. Normal colon. The appendix is visualized and appears normal. There is diffuse atherosclerotic calcification of the abdominal aorta and its major visceral branches, without a demonstrated aneurysm. Normal inferior vena cava. Normal retroperitoneum. There is evidence of a 2.6 cm x 3 cm polypoid lesion in the base of the bladder on the right side. There is enlargement of the prostate gland. This causes indentation at the bladder base. There is a small umbilical hernia containing fat. There are diffuse degenerative changes of the visualized lumbar spine. Degenerative changes of the sacroiliac joints. CT/Abdomen/Pelvis without Cont IMPRESSION: 2.6 cm x 3 cm polypoid lesion base of the bladder on the right side. A bladder mass should BE ruled out. Prostatic enlargement with indentation at the bladder base. Electronically Signed: Konrad Silvestre MD at 15:09 EDT ,
== END 2021-08-24 23:59 | disposition home or self-care (01) ==
PROVIDERS: PCP Physician Assistant; Referring Provider Urology; Visit Provider Urology
DX: R31.0 Gross hematuria (principal)
CPT/HCPCS: 74176

== ENCOUNTER 2021-09-15 05:46 | Day surgery (SDC) | payer SELFPAY ==
[2021-09-15] VITALS (9 sets, daily range): BP systolic 146–187; BP diastolic 67–86; PULSE 43–67; RESP 16–18; TEMP 36.1–36.8; O2SAT 96–98; BMI 34.1
--- NOTE | 2021-09-15 | BLB_PTH ---
PATIENT: TITI GERARDO [place] [facility] [id number] AGE/SX: 76/M ROOM: RE09/15/[address]: Dr. Benny Max MD : [id number] BED: DIS: 09/15/2021 SPEC #: [id number] RECD: 09/15/21 12:28 STATUS: AIMEE REJavid #: [id number] VIVIANE: 09/15/21 00:[address]: Benny Max DEPT: SURGICAL PATHOLOGY RECD BY: Bryson Roy ENTERED: 09/15/21 12:28 SP TYPE: TURB OTHR DR: Humberto Gaytan PA-C Tissues: Urinary bladder, NOS Procedures: Surgery Specimen Level V HEADER OPERATION: Cysto, transurethral resection bladder, Olympus PRE-OP DIAGNOSIS: Large bladder tumor TISSUE SUBMITTED: Bladder tumor MICROSCOPIC DIAGNOSIS Bladder tumor, transurethral resection: Papillary urothelial carcinoma. See cancer summary in the comment section. SJ:ayad 09/16/2021 COMMENT BLADDER CANCER (TUR) SUMMARY Procedure: Transurethral resection of bladder (TURBT) Tumor site: Not specified Histologic type: Papillary urothelial carcinoma, noninvasive Histologic grade: Predominantly low grade with focal area of high-grade (2-3/3). Tumor configuration: Predominantly papillary and focal area with endophytic pattern. Muscularis propria presence: Muscularis propria (detrusor muscle) present and free of tumor. Lymphvascular invasion: Not identified Tumor extension: Noninvasive papillary carcinoma. Additional pathologic findings: Chronic inflammation. The above summary is in compliance with [employer] [place] (CAP) Cancer Protocols Checklist and [place] Joint Committee on Cancer (AJCC), Staging Manual, 8th Ed. MICROSCOPIC DESCRIPTION Slides are reviewed. GROSS DESCRIPTION Received in fixative is one container labeled with the patient's name and designated bladder tumor. The specimen consists of multiple irregular fragments of thacker-brown soft tissue that in aggregate measure 5 x 3 x 1 cm. The entire specimen is submitted in six cassettes. / RICARDO:ayad 09/15/2021 TC:0 CPT: 97825
--- NOTE | 2021-09-15 06:33 | EKG12_ITS ---
Test Reason : PRE OP Blood Pressure : / mmHG Vent. Rate : 050 BPM Atrial Rate : 050 BPM P-R Int : 172 ms QRS Dur : 092 ms QT Int : 458 ms P-R-T Axes : 009 017 029 degrees QTc Int : 417 ms Sinus bradycardia with Premature atrial complexes Otherwise normal ECG Confirmed by PATRICIA ARRIAZA, FABIAN ([id number]), medical transcription editor NAYLA GUPTA ([id number]) on 09/20/2021 11:39:30 AM Referred By: Benny Max Confirmed By:FABIAN GOMEZ MD
[2021-09-15 06:41] LABS: Hematocrit 42.4 % (40-54); Hemoglobin 14.3 g/dL (13.0-16.5); Mean Corp Hgb Conc 33.7 g/dL (32-36); Mean Corpuscular Hgb 29.9 pg (27.0-32.0); Mean Corpuscular Volume 88.5 fL (80-94); Mean Platelet Vol. 9.6 fl (6.2-12.0); Platelet Count 203 K/mm3 (150-450); RBC Distribution Width CV 13.7 % (11.6-14.6); RBC Distribution Width SD 44.4 fl (35.1-43.9); Red Blood Count 4.79 M/mm3 (4.6-6.2); White Blood Count 7.7 K/mm3 (4.4-11.0)
[2021-09-15] MEDS: Lactated Ringers 1,000 ML 30 ML IV ×2 (06:46→08:30)
[2021-09-15 07:02] LABS: Anion Gap 8 (5-15); BUN 24 mg/dL (7-18); BUN/Creat Ratio 26.5 RATIO (10-20); Calcium,Total 9.3 mg/dL (8.5-10.1); Chloride 105 mmol/L (98-107); Creatinine, Serum 0.91 mg/dL (0.70-1.30); EST Glomerular Filtration Rate 86 mL/min (>60); Est Glom Filt Rate - Afr Amer 104 mL/min (>60); Estimated Creatinine Clearance 70.19 ml/min; Glucose 175 mg/dL (74-106); Potassium 4.5 mmol/L (3.5-5.1); Sodium Level 139 mmol/L (136-145)
[2021-09-15] MEDS: Cefazolin 2 GM in 0.9% Normal Saline 100 ML IV (07:28)
[2021-09-15 07:33] LABS: Hemoglobin A1c 7.2 % (3.8-5.6)
--- NOTE | 2021-09-15 07:42 | HP.PCM_ITS ---
HPI - General HPI Narrative TITI GERARDO, is a 76 M who presents for resection of a large bladder tumor and Mitomycin-C [facility] Medical History (Updated 09/15/21 @ 07:[address] Benny Max MD) Back pain Bladder disease Cancer Diabetes Dietary restriction Former smoker Heartburn High cholesterol Hx of cardiovascular stress test Hypertension Ileus following gastrointestinal surgery Restless legs Shortness of breath on exertion Syncope Systolic hypertension Urinary outflow obstruction Wears dentures Wears glasses Wears hearing aid in both ears Home Medications glimepiride 2 mg tablet 2 mg PO BID tablet 09/14/20 [History Last Taken 10/10/20] lisinopril 5 mg tablet 5 mg PO DAILY tablet 09/14/20 [History Last Taken ] metformin 1,000 mg tablet 1,000 mg PO BID tablet 09/14/20 [History Last Taken 10/10/20] pioglitazone 45 mg tablet 45 mg PO DAILY tablet 09/14/20 [History Last Taken 10/10/20] simvastatin 20 mg tablet 20 mg PO QHS tablet 09/14/20 [History Last Taken 10/10/20] tamsulosin 0.4 mg capsule 0.4 mg PO DAILY cap 09/14/20 [History Last Taken 10/10/20] acetaminophen 1,000 mg PO Q8H PRN PRN #0 tab 10/16/20 [Rx Last Taken Unknown] ibuprofen 400 mg PO Q6H PRN PRN #0 tab 10/16/20 [Rx Last Taken Unknown] Lantus Solostar U-100 Insulin 40 unit SUBCUT QPM 09/10/21 [History Last Taken Unknown] ciprofloxacin HCl [Cipro] 500 mg PO BID #10 tab 09/15/21 [Rx Last Taken Unknown] oxycodone-acetaminophen 1 tab PO Q6H PRN 7 Days #10 tab 09/15/21 [Rx Last Taken Unknown] Allergy/AdvReac Type Severity Reaction Status Date / Time No Known Allergies Allergy Verified 09/15/21 06:38 Family History Mother Diabetes Father CVA (cerebral vascular accident) Surgical History History of colonoscopy Status post colectomy Social History Smoking Status: Former smoker Tobacco: How many years used: 50 second hand exposure: No alcohol intake: never substance use type: does not use caffeine: No what type of physical activity do you participate in: none frequency: does not exercise jesus/gnosticist: Mennonite do you feel safe at home: Yes Vital Signs Vital Signs Vital Signs: 09/15/21 06:40 Temperature 98.2 F Temperature Source Temporal Pulse Rate 53 L Respiratory Rate 16 Respiratory Pattern Normal Blood Pressure 162/71 H Blood Pressure Mean 101 Blood Pressure Source Monitor Blood Pressure Position Sitting Blood Pressure Location Left Arm Pulse Ox 98 Oxygen Delivery Method Room Air Weight Weight: 108 kg Body Mass Index (BMI) 34.1 Results Lab / Micro Data Result Diagrams: 09/15/21 06:30 09/15/21 06:30 Labs: Laboratory Results - last 24 hr 09/15/21 06:30: WBC 7.7, RBC 4.79, Hgb 14.3, Hct 42.4, MCV 88.5, MCH 29.9, MCHC 33.7, RDW Std Deviation 44.4 H, RDW Coeff of Paulie 13.7, Plt Count 203, MPV 9.6 09/15/21 06:30: Sodium 139, Potassium 4.5, Chloride 105, Carbon Dioxide 26.0, Anion Gap 8, BUN 24 H, Creatinine 0.91, Estim Creat Clear Calc 70.19, Est GFR (MDRD) Af Amer 104, Est GFR (MDRD) Non-Af 86, BUN/Creatinine Ratio 26.5 H, Glucose 175 H, Calcium 9.3 09/15/21 06:30: Hemoglobin A1c 7.2 H Micro: Microbiology 09/15/21 06:20 Interface Orders SARS-CoV-2 Antigen (Rapid) - Final
--- NOTE | 2021-09-15 07:42 | PCM.DC ---
Discharge Instructions Diet Discharge Diet: No restrictions Activity Discharge Activity: Return to Normal Activity and May Not Drive (while taking narcotic pain medications.) Dressing / Incision Call your doctor if you observe: Fever of 101 or Higher Follow Up Care Please Follow Up With: Benny Max MD When: Call [phone] for an appointment Test Results: Test results from this visit will be discussed in further detail at your follow-up appointment, if applicable. Discharge Plan Admission Primary Reason for Your Visit: Resection of bladder tumor Attending Provider: Benny Max Primary Care Provider: Humberto Gaytan Instructions Patient Instructions: Discharge Instructions for ... Discharge Orders/Prescriptions Prescriptions: New ciprofloxacin HCl [Cipro] 500 mg tablet 500 mg PO BID Qty: 10 RF: 0 oxycodone-acetaminophen 5-325 mg tablet 1 tab PO Q6H PRN (Reason: pain) 7 Days Qty: 10 RF: 0 Continued pioglitazone 45 mg tablet 45 mg PO DAILY RF: 0 glimepiride 2 mg tablet 2 mg PO BID RF: 0 tamsulosin 0.4 mg capsule 0.4 mg PO DAILY RF: 0 simvastatin 20 mg tablet 20 mg PO QHS RF: 0 metformin 1,000 mg tablet 1,000 mg PO BID RF: 0 lisinopril 5 mg tablet 5 mg PO DAILY RF: 0 acetaminophen 500 mg Tablet 1,000 mg PO Q8H PRN PRN (Reason: Pain Score 1-10) Qty: 0 RF: 0 ibuprofen 400 mg Tablet 400 mg PO Q6H PRN PRN (Reason: Pain Score 1-10) Qty: 0 RF: 0 Lantus Solostar U-100 Insulin 100 unit/mL (3 mL) Insulin Pen 40 unit SUBCUT QPM RF: 0 Discontinued aspirin [Adult Low Dose Aspirin] 81 mg tablet,delayed release (DR/EC) 81 mg PO DAILY RF: 0 Referrals / Follow Up: Humberto Gaytan, BRISEYDA [Primary Care Provider] - Benny Max MD [STAFF PHYSICIAN] - Disposition Disposition (needs filled in before D/C Order can be placed): Home, Self Care
[2021-09-15] MEDS: Lubricating Jelly 60 GM Tube 30 GM (07:45)
--- NOTE | 2021-09-15 08:34 | PCM.OPRPT ---
Report of Operation Date of Procedure: 09/15/21 Pre-Operative Diagnosis: Bladder tumor large greater than 5 cm Post-Operative Diagnosis: Same Surgery/Procedure Performed:: Transurethral section of a large bladder tumor instillation of Mitomycin-C Description of Surgical Findings:: Patient presented to the hospital for treatment of a tumor that was found in the bladder with a very large bladder tumor. Patient understands is possible it may not be able to resect the entire tumor. Patient also understands is possible that the patient may need multiple procedures or more invasive procedures to cure him of this cancer. Patient was taken back to the operating room after smooth induction of anesthesia the patient was placed supine on the table. The patient was placed in dorsolithotomy position. The urethra and genitals prepped and draped in usual sterile fashion. I went into the bladder with a 30 degree lens and a cystoscope was performed and identified the tumor the tumors which was about 5-6 centimeters in size and occupying mostly the right lateral wall of the bladder. I then switched over to the 70 degree lens and inspected the rest of the bladder with a 70 degree lens to make sure there is no other tumors in the bladder and to identify all the tumor locations. The right and left ureteral orifice were identified. The tumor was none involved in the ureteral orifice. I then placed the Olympus bipolar resectoscope with a large loop into the bladder. I then started resected the tumor and started superficially shaving small little pieces working my way to the base of the tumor. As I went along I then cauterize any bleeders that were encountered during the resection. The tumor pieces were then flushed out of the bladder and continued resecting the tumor until finally I got down to the base of the tumor and the muscle of the bladder was then identified a small little bit of muscle was taken with the resection. The Ellik was used then to evacuate all the tumor pieces out of the bladder. I then cauterized extensively the tumor base and also circumferentially around where the tumor was. Again we made sure to evacuate all the pieces out the bladder. I made sure there was no more bleeding from the base of the bladder and then over the tumor pieces were then evacuated out and sent off as a specimen. After the resection of the entire tumor was completed then treatment with Mitomycin-C was performed. We then placed the catheter in the bladder and the patient was taken back to the PACU in stable condition. Surgeon: saad Type of Anesthesia: General Drains: 18fr Admit VTE Documentation VTE Present on Admission: No VTE Mechan Device Prophylaxis: SCD's VTE Pharm Prophylaxis ordered?: No
[2021-09-15 09:20] LABS: Bedside Glucose 161 mg/dL (74-106)
[2021-09-15] MEDS: Acetaminophen 325 MG Tablet 650 MG PO (10:03)
[2021-09-15] MEDS: Lisinopril 5 MG Tablet PO (11:36)
== END 2021-09-15 14:10 | disposition home or self-care (01) ==
LOC: SDC 05:54 → AC 05:54
PROVIDERS: Anesthesiology; PCP Physician Assistant; Referring Provider Urology; Visit Provider Urology
PROC: 0T5B8ZZ Destruction of Bladder, Via Natural or Artificial Opening Endoscopic (ICD-10-PCS; CPT 51720; principal; 2021-09-15 07:20)
DX: D09.0 Carcinoma in situ of bladder (principal); E11.9 Type 2 diabetes mellitus without complications; Z79.82 Long term (current) use of aspirin; Z87.891 Personal history of nicotine dependence; M54.9 Dorsalgia, unspecified; H91.90 Unspecified hearing loss, unspecified ear; R31.0 Gross hematuria; R10.84 Generalized abdominal pain; Z85.038 Personal history of other malignant neoplasm of large intestine; Z90.49 Acquired absence of other specified parts of digestive tract; I10 Essential (primary) hypertension
CPT/HCPCS: 52250; 00910; 80048; 82962; 83036; 85027; 87426; 88307; 93005; J7120; J2405; J3490; J9280

== ENCOUNTER 2021-10-20 11:21 | Day surgery (SDC) | payer SELFPAY ==
[2021-10-20] VITALS (7 sets, daily range): BP systolic 125–153; BP diastolic 75–89; PULSE 54–70; RESP 16–18; TEMP 36.3–36.6; O2SAT 93–98; BMI 34.1
--- NOTE | 2021-10-20 12:22 | HP.PCM_ITS ---
HPI - General HPI Narrative TITI GERARDO, is a 76 M who presents for a 1 year follow-up colonoscopy after right hemicolectomy due to ascending colon cancer. Patient also recently had resection of a bladder tumor by Dr. Max as he had noticed some blood in his urine. Patient currently denies any abdominal pain PFSH Medical History Back pain Bladder disease Cancer Diabetes Dietary restriction Former smoker Heartburn High cholesterol Hx of cardiovascular stress test Hypertension Ileus following gastrointestinal surgery Restless legs Shortness of breath on exertion Syncope Systolic hypertension Urinary outflow obstruction Wears dentures Wears glasses Wears hearing aid in both ears Home Medications glimepiride 2 mg tablet 2 mg PO BID tablet 09/14/20 [History Last Taken ] lisinopril 5 mg tablet 5 mg PO DAILY tablet 09/14/20 [History Last Taken 10/12/20] metformin 1,000 mg tablet 1,000 mg PO BID tablet 09/14/20 [History Last Taken 10/10/20] pioglitazone 45 mg tablet 45 mg PO DAILY tablet 09/14/20 [History Last Taken 10/10/20] simvastatin 20 mg tablet 20 mg PO QHS tablet 09/14/20 [History Last Taken 10/10/20] tamsulosin 0.4 mg capsule 0.4 mg PO DAILY cap 09/14/20 [History Last Taken 10/10/20] acetaminophen 1,000 mg PO Q8H PRN PRN #0 tab 10/16/20 [Rx Last Taken Unknown] ibuprofen 400 mg PO Q6H PRN PRN #0 tab 10/16/20 [Rx Last Taken Unknown] insulin glargine [Lantus Solostar U-100 Insulin] 40 unit SUBCUT QPM 09/10/21 [History Last Taken Unknown] ciprofloxacin HCl [Cipro] 500 mg PO BID #10 tab 09/15/21 [Rx Last Taken Unknown] aspirin 81 mg PO DAILY 10/14/21 [History Last Taken Unknown] Allergy/AdvReac Type Severity Reaction Status Date / Time No Known Allergies Allergy Verified 10/14/21 11:51 Family History Mother Diabetes Father CVA (cerebral vascular accident) Surgical History History of colonoscopy Hx of transurethral resection of prostate Status post colectomy Social History Smoking Status: Former smoker Tobacco: How many years used: 50 second hand exposure: No alcohol intake: never substance use type: does not use caffeine: No what type of physical activity do you participate in: none frequency: does not exercise jesus/yazidism: Mennonite do you feel safe at home: Yes Past Medical/Surgical History Planned Operation Planned Operative Procedure/s: Colonoscopy Previous Hospitalizations/Surgeries HX Hospitalizations: No Any Problems With Anesthesia: No You/Your Family Experience Fever (Hyperthermia) With Anes: No Cholinesterase deficiency: No Cardiovascular Hx Hypertension: Yes (CONTROLLED WITH MED) Respiratory Hx Sleep Apnea: No CPAP: No Hx Respiratory Tract Infection/Cold (presently): No Do You Snore Loudly (louder than talking or can be heard): No Do You Often Feel Tired/ Fatigued/ Sleepy Dring Daytime?: No Has Anyone Observed You Stop Breathing During Sleep?: No Result (for STOP score): Negative Smoking Status: Former smoker Neurological Does patient have nerve stimulator: No Miscellaneous Recent Exposure to Contagious Disease: No Allergies No Known Allergies Allergy (Verified 10/14/21 11:51) Discharge Is Pt Admitted From a Detention, or a Senior Care: No After D/C, Where Do you Plan to Go: Return Home Vital Signs Vital Signs Vital Signs: 10/20/21 12:08 Temperature 97.8 F Temperature Source Temporal Pulse Rate 54 L Respiratory Rate 16 Respiratory Pattern Normal Blood Pressure 153/89 H Blood Pressure Mean 110 Blood Pressure Source Monitor Blood Pressure Position Sitting Blood Pressure Location Left Arm Pulse Ox 98 Oxygen Delivery Method Room Air Weight Weight: 238 lb 1.588 oz Body Mass Index (BMI) 34.1 Physical Exam Const alert, oriented x3 and no apparent distress HEENT normocephalic and head/scalp atraumatic Resp normal respiratory effort Cardio regular rate GI soft to palpation and non-tender; Negative for non-distended Palpation: Negative for guarding Extremity no clubbing, cyanosis or edema Neuro CN's II-XII intact bilaterally Psych mental status grossly normal Assessment & Plan Assessment/Plan (1) Status post colectomy: (2) Colon adenocarcinoma: Procedure Criteria Type of Procedure Procedure Type: Elective Elective Risks - COVID COVID Risk Discussion: The surgeon/proceduralist and patient have discussed in detail the risk of exposure to and/or potential harm posed by the COVID-19 virus with having a surgery/procedure at this time versus the risk of delaying the surgery/procedure. It is not possible to know either the risk of delaying the surgery or procedure or chance of getting an infection with perfect accuracy, but a joint decision was made between the patient and the surgeon/proceduralist to proceed at this time with the scheduled surgery/procedure as indicated on the consent form. Surgery Risks - Colonoscopy Risks Include but are not Limited To: Risks include but are not limited to: Bleeding, perforation requiring further surgery, inability to complete colonoscopy requiring barium enema.
[2021-10-20] MEDS: Lactated Ringers 1,000 ML 15 ML IV (12:24)
[2021-10-20 12:25] LABS: Bedside Glucose 143 mg/dL (74-106)
--- NOTE | 2021-10-20 13:28 | OP.COLON_ITS ---
Patient Name: Wilfred Grier Procedure Date: 10/20/2021 12:49 PM Date of : 1945 Age: 76 Procedure: Colonoscopy Indications: High risk colon cancer surveillance: Personal history of colon cancer Providers: Olinda Acevedo MD Medicines: Monitored Anesthesia Care Patient Profile: This is a 76 year old male. Last Colonoscopy: 1 year ago. Complications: No immediate complications. Procedure: Pre-Anesthesia Assessment: - Prior to the procedure, a History and Physical was performed, and patient medications and allergies were reviewed. The patient's tolerance of previous anesthesia was also reviewed. The risks and benefits of the procedure and the sedation options and risks were discussed with the patient. All questions were answered, and informed consent was obtained. Prior Anticoagulants: The patient has taken no previous anticoagulant or antiplatelet agents. ASA Grade Assessment: Per anesthesia. After reviewing the risks and benefits, the patient was deemed in satisfactory condition to undergo the procedure. After I obtained informed consent, the scope was passed under direct vision. Throughout the procedure, the patient's blood pressure, pulse, and oxygen saturations were monitored continuously. The Colonoscope was introduced through the anus and advanced to the ileocolonic anastomosis. The colonoscopy was performed without difficulty. The patient tolerated the procedure well. The quality of the bowel preparation was good. Scope In: 1:11:33 PM Scope Withdrawal Time 0 hours 6 minutes 18 seconds Scope Out: 1:21:33 PM Total Procedure Duration Time 0 hours 10 minutes 0 seconds Findings: The perianal and digital rectal examinations were normal. A less than 5 mm polyp was found in the rectum. The polyp was sessile. The polyp was removed with a cold biopsy forceps. Resection and retrieval were complete. The exam was otherwise without abnormality on direct and retroflexion views. Impression: - One less than 5 mm polyp in the rectum, removed with a cold biopsy forceps. Resected and retrieved. - The examination was otherwise normal on direct and retroflexion views. Recommendation: - Discharge patient to home. - Resume previous diet. - Continue present medications. - Await pathology results. - Repeat colonoscopy 1-3 years for surveillance based on pathology results. Procedure Code(s): --- Professional --- 29225, PT, Colonoscopy, flexible; with biopsy, single or multiple Diagnosis Code(s): --- Professional --- Z85.038, Personal history of other malignant neoplasm of large intestine K62.1, Rectal polyp CPT copyright 2017 [employer]. All rights reserved. The codes documented in this report are preliminary and upon non licensed nuclear equipment operator review may be revised to meet current compliance requirements. MD Olinda Wilkins MD 10/20/2021 1:28:06 PM This report has been signed electronically. Number of Addenda: 0 Note Initiated On: 10/20/2021 12:49 PM
--- NOTE | 2021-10-20 13:29 | OP.CCLET_ITS ---
10/20/2021 Humberto Gaytan Do Re : Colonoscopy procedure for Wilfred Grier Dear Lucila This procedure was performed on Wednesday, October 20, 2021. My impressions and recommendations are as follows: Impressions : - One less than 5 mm polyp in the rectum, removed with a cold biopsy forceps. Resected and retrieved. - The examination was otherwise normal on direct and retroflexion views. Recommendations : - Discharge patient to home. - Resume previous diet. - Continue present medications. - Await pathology results. - Repeat colonoscopy 1-3 years for surveillance based on pathology results. My findings are described in the full procedure note, which is enclosed. If I can be of further assistance, please feel free to contact me at Doctor phone number(s): , Work: . Sincerely, MD Olinda Wilkins MD 10/20/2021 1:28:06 PM This report has been signed electronically.
--- NOTE | 2021-10-20 13:30 | COLBX_PTH ---
PATIENT: TITI GERARDO LOC: EN U#:[id number] AGE/SX: 76/M ROOM: RE10/20/[address]: Dr. Olinda Acevedo MD : 1945 BED: DIS: 10/20/2021 SPEC #: [id number] RECD: 10/20/21 14:37 STATUS: AIMEE REJavid #: [id number] VIVIANE: 10/20/21 13:[address]: Olinda Acevedo DEPT: SURGICAL PATHOLOGY RECD BY: Annie Corbin ENTERED: 10/21/21 09:53 SP TYPE: COLON BX OTHR DR: Humberto Gaytan PA-C Tissues: Rectum, NOS Procedures: Surgery Specimen Level IV HEADER OPERATION: Colonoscopy (MAC), biopsy PRE-OP DIAGNOSIS: Status post colectomy, colon adenocarcinoma TISSUE SUBMITTED: Rectal biopsy MICROSCOPIC DIAGNOSIS Rectum, biopsy: Hyperplastic polyp. AM:ayad 10/22/2021 MICROSCOPIC DESCRIPTION Slides are reviewed. GROSS DESCRIPTION Received in fixative is one container labeled with the patient's name and designated rectal biopsy. The specimen consists of one irregular fragment of light thacker soft tissue that measures 0.3 x 0.2 x 0.1 cm. The specimen is totally submitted in one cassette. / AM:ayad 10/21/2021 TC:5 CPT: 87333
== END 2021-10-20 14:05 | disposition home or self-care (01) ==
LOC: EN 11:27 → AC 11:28
PROVIDERS: PCP Physician Assistant; Referring Provider Physician Assistant; Visit Provider Surgery
PROC: 0DJD8ZZ Inspection of Lower Intestinal Tract, Via Natural or Artificial Opening Endoscopic (ICD-10-PCS; CPT 45378; principal; 2021-10-20 13:25)
DX: Z12.11 Encounter for screening for malignant neoplasm of colon (principal); E11.9 Type 2 diabetes mellitus without complications; Z79.4 Long term (current) use of insulin; K62.1 Rectal polyp; I10 Essential (primary) hypertension; E78.00 Pure hypercholesterolemia, unspecified; Z79.84 Long term (current) use of oral hypoglycemic drugs; Z79.82 Long term (current) use of aspirin; Z79.899 Other long term (current) drug therapy; Z87.891 Personal history of nicotine dependence; Z85.038 Personal history of other malignant neoplasm of large intestine
CPT/HCPCS: 45380; 82962; 88305; J7120; J2405

== ENCOUNTER 2024-10-09 09:36 | Day surgery (SDC) | payer SELFPAY ==
[2024-10-09] VITALS (7 sets, daily range): BP systolic 124–157; BP diastolic 68–94; PULSE 72–85; RESP 12–18; TEMP 36.2–36.4; O2SAT 97–99; BMI 31.9
[2024-10-09] MEDS: Lactated Ringers 1,000 ML 15 ML IV (10:20)
--- NOTE | 2024-10-09 10:23 | PCM.PRE.AN2 ---
ASA Classification* ASA Classification ASA Classification: 2 Assessment & Plan Anesthesia* Anesthesia Assessment Anesthesia Assessment: Discussed sedation and/or anesthesia options, risks, benefits, and alternatives with patient/parents/legal guardian/POA. Questions invited. The patient/parents/legal guardian/POA seems to understand and agrees to proceed with anesthesia plan. Reviewed the physical assessment, medical history, allergy history and patient home medications list prior to surgery/procedure/anesthetic and documented any changes. Performed airway and anesthesia risk assessments. Anesthesia Type Anesthesia Type: MAC Anesthesia Focused Assessment* Temperature: 97.1 F Pulse Rate: 85 Blood Pressure: 157/93 Respiratory Rate: 16 Pulse Ox: 99 Airway Assessment Mouth opens: >3 cm Mallampati Score: II Focused Labs Anesthesia Preop lab: CBC WBC 7.5 K/mm3 (4.4-11.0) 11/23/21 12:05 11/23/21 RBC 4.60 M/mm3 (4.6-6.2) 11/23/21 12:11/23/21 Hgb 13.5 g/dL (13.0-16.5) 11/23/21 12:05 11/23/21 Hct 42.2 % (40-54) 11/23/21 12:05 11/23/21 Plt Count 172 K/mm3 (150-450) 11/23/21 12:05 11/23/21 CHEMISTRY Potassium 4.4 mmol/L (3.5-5.1) 11/23/21 12:05 11/23/21 Sodium 140 mmol/L (136-145) 11/23/21 12:05 11/23/21 Magnesium 2.0 mg/dL (1.6-2.6) 10/16/20 05:50 10/16/20 Phosphorus 4.1 mg/dL (2.5-4.9) 10/16/20 05:50 10/16/20 BUN 24 mg/dL (7-18) H 11/23/21 12:05 11/23/21 Creatinine 0.92 mg/dL (0.70-1.30) 11/23/21 12:05 11/23/21 Glucose 202 mg/dL (74-106) H 11/23/21 12:05 11/23/21 POC Glucose 143 mg/dL (74-106) H 10/20/21 12:17 10/20/21 COAG Pre-Assessment Diagnosis/Proposed Procedure Planned Operative Procedure(s): COLONOSCOPY Anesthesia History 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 When Was Last Pacemaker Check QUESTION #4 FULL TEXT: You/Your Family Experience fever (hyperthermia) with Anesthesia Last Oral Intake Last Oral intake: Last Oral Intake NPO since 22:00 10/09/24 10:09 Meds taken in AM with sips of No 10/09/24 10:09 water? Meds patient instructed to take am of surgery PONV PONV - commercial pest control representative: PONV - commercial pest control representative Female No 10/08/24 12:34 HX of Motion Sickness No 10/08/24 12:34 HX of N/V After Surgery No 10/08/24 12:34 Non-Smoker No 10/08/24 12:34 Duration of Surgery greater No 10/08/24 12:34 than 60 minutes Number of Risk Factors PONV Score Height & Weight Height & Weight: Anesthesia: Height & Weight Height 5 ft 10 in 10/09/24 10:09 Weight: 101 kg 10/09/24 10:09 Body Mass Index (BMI) 31.9 10/09/24 10:09 Respiratory Assessment Respiratory Assessment - commercial pest control representative: Respiratory Tract Infection Hx - commercial pest control representative Hx Respiratory Tract Infection No 10/08/24 12:34 STOP Sleep Apnea STOP Sleep Apnea - commercial pest control representative: STOP Sleep Apnea - commercial pest control representative Hx Hypertension Yes 10/08/24 12:34 Hx Sleep Apnea No 10/08/24 12:34 CPAP No 10/20/21 12:23 BIPAP Do you snore loudly (louder No 10/08/24 12:34 than talking or can be heard Do you often feel tired/ No 10/08/24 12:34 fatigued/ sleepy during daytime? Has anyone observed you stop No 10/08/24 12:34 breathing during sleep? STOP Results Negative 10/08/24 12:34 QUESTION #5 FULL TEXT : Do you snore loudly (louder than talking or can be heard through closed doors)? Tobacco Use History Tobacco Use History - commercial pest control representative: Tobacco Use History - commercial pest control representative Tobacco Use Chew 11/04/20 11:12 Smoking Status Current some day smoker 10/08/24 12:34 Hx Tobacco Use Yes: . 10/08/24 12:34 Years Smoking Packs Smoked per Day Smoking Cessation Date was within the last 15 years Hx Smoking Cessation Date 05/22/04 10/08/24 12:34 Hx Smoking Cessation No 10/08/24 12:34 Counseling Hematologic Medial History Hematologic Hx - commercial pest control representative: Hematologic Medical Hx - documentation engineer Hx of Blood Transfusion No 10/08/24 12:34 Hx of Transfusion in last 3 No 10/08/24 12:34 Months Date of Last Transfusion (if within last 3 months) Ever experience any problems No 10/08/24 12:34 with transfusion(s)? Specify any problems Hx of Preganancy in last 3 N/A 10/08/24 12:34 Months Nurse Filling Out Transfusion VLEHMAN 10/08/24 12:34 & Questions: Date: 10/08/24 10/08/24 12:34 Time: 12:37 10/08/24 12:34 Patient unable to answer at this time (ie. confused, unrespo /Reproduction History /Reproductive History - commercial pest control representative: /Reproductive Hx- commercial pest control representative Hx Now No 10/08/24 12:34 Gestational Age (in weeks): EDC: Hx Hx Para Hx Section SAB No 09/10/21 09:08 Active Medications Active Medications: Current Medications Generic Name Dose Route Start Last Admin Trade Name Freq PRN Reason Stop Dose Admin Lactated Ringer's 1,000 mls @ 15 mls/hr 10/09/24 10:00 10/09/24 10:20 IV 15 mls/hr .Q48H BRANDIN Administration PFSH Medical History Discoloration of skin Insulin dependent diabetes mellitus Smoker Wears dentures Bladder disease High cholesterol Dietary restriction Ileus following gastrointestinal surgery Cancer Wears glasses Wears hearing aid in both ears Heartburn Shortness of breath on exertion Hx of cardiovascular stress test Hypertension Restless legs Back pain Diabetes Systolic hypertension Urinary outflow obstruction Home Medications ?Medication ?Instructions ?Recorded ?Last Taken ?Type lisinopril 5 mg tablet 10 mg PO DAILY blood pressure 09/14/20 10/12/20 History metformin 1,000 mg tablet 1,000 mg PO BID diabetes 09/14/20 10/10/20 History simvastatin 20 mg tablet 20 mg PO QHS cholesterol 09/14/20 10/10/20 History tamsulosin 0.4 mg capsule 0.4 mg PO DAILY urine flow 09/14/20 10/10/20 History insulin glargine 100 unit/mL (3 20 unit subcut BID 09/10/21 10/08/24 History mL) subcutaneous pen (Lantus Solostar U-100 Insulin) aspirin 81 mg tablet 81 mg PO DAILY 10/14/21 10/05/24 History Allergy/AdvReac Type Severity Reaction Status Date / Time No Known Allergies Allergy Verified 10/09/24 10:08 Family History Mother Diabetes Father CVA (cerebral vascular accident) Surgical History Hx of transurethral resection of prostate Status post colectomy History of colonoscopy Social History Smoking Status: Current some day smoker tobacco type: pipe and cigars Tobacco: How many years used: 50 second hand exposure: No alcohol intake: never substance use type: does not use caffeine: No what type of physical activity do you participate in: none frequency: does not exercise jesus/presybeterian: Mennonite do you feel safe at home: Yes Review of Systems (Anesthesia) ROS Narrative System reviewed and no additional complaints, except as documented.
[2024-10-09 10:43] LABS: Bedside Glucose 291 mg/dL (74-106)
[2024-10-09] MEDS: Insulin Lispro 100 UNIT/ML INSULN.PEN SC (10:45)
--- NOTE | 2024-10-09 11:30 | COLBX_PTH ---
PATIENT: TITI GERARDO LOC: EN U#:[id number] AGE/SX: 79/M ROOM: RE10/09/[address]: Dr. Olinda Acevedo MD : 1945 BED: DIS: 10/09/2024 SPEC #: [id number] RECD: 10/09/24 16:04 STATUS: AIMEE REJavid #: [id number] VIVIANE: 10/09/24 11:[address]: Olinda Acevedo DEPT: SURGICAL PATHOLOGY RECD BY: Annie Corbin ENTERED: 10/10/24 07:39 SP TYPE: COLON BX OTHR DR: Humberto Gaytan PA-C Tissues: A - Transverse colon B - Rectum, NOS Procedures: Surgery Specimen Level IV HEADER OPERATION: Colonoscopy with biopsies PRE-OP DIAGNOSIS: Cancer, status post colectomy TISSUE SUBMITTED: A- Transverse colon biopsy, B- Rectal biopsy MICROSCOPIC DIAGNOSIS A. Transverse colon, biopsy: Tubular adenoma. B. Rectum, biopsy: Hyperplastic polyp (two fragments). MICROSCOPIC DESCRIPTION Slides are reviewed. GROSS DESCRIPTION A. Received in formalin in a container labeled with the patient's name, date of , and transverse colon biopsy is a 0.3 x 0.3 x 0.3 cm fragment of thacker-pink mucosal tissue. Submitted in toto in A1. B. Received in formalin in a container labeled with the patient's name, date of , and rectal biopsy are 2 thacker-pink fragments of mucosal tissue, each measuring 0.4 x 0.2 x 0.2 cm. Submitted in toto in B1. [facility] 10-10-2024 CPT:96100j7
--- NOTE | 2024-10-09 11:31 | H&P.OPEN ---
[facility] - General General Date of Service: 10/09/24 HPI Narrative TITI GERARDO, is a 79 M who presents for screening colonoscopy. Patient had history of colon cancer status post right hemicolectomy in 2020. Patient last colonoscopy was October 2021 had a hyperplastic polyp in the rectum at that time. Patient states his bowel months range between soft and occasional constipation but typically goes regularly. Denies any blood. Patient denies any nausea or vomiting. [facility] Medical History Discoloration of skin Insulin dependent diabetes mellitus Smoker Wears dentures Bladder disease High cholesterol Dietary restriction Ileus following gastrointestinal surgery Cancer Wears glasses Wears hearing aid in both ears Heartburn Shortness of breath on exertion Hx of cardiovascular stress test Hypertension Restless legs Back pain Diabetes Systolic hypertension Urinary outflow obstruction Home Medications ?Medication ?Instructions ?Recorded ?Last Taken ?Type lisinopril 5 mg tablet 10 mg PO DAILY blood pressure 09/14/20 10/12/20 History metformin 1,000 mg tablet 1,000 mg PO BID diabetes 09/14/20 10/10/20 History simvastatin 20 mg tablet 20 mg PO QHS cholesterol 09/14/20 10/10/20 History tamsulosin 0.4 mg capsule 0.4 mg PO DAILY urine flow 09/14/20 10/10/20 History insulin glargine 100 unit/mL (3 20 unit subcut BID 09/10/21 10/08/24 History mL) subcutaneous pen (Lantus Solostar U-100 Insulin) aspirin 81 mg tablet 81 mg PO DAILY 10/14/21 10/05/24 History Allergy/AdvReac Type Severity Reaction Status Date / Time No Known Allergies Allergy Verified 10/09/24 10:08 Family History Mother Diabetes Father CVA (cerebral vascular accident) Surgical History Hx of transurethral resection of prostate Status post colectomy History of colonoscopy Social History Smoking Status: Current some day smoker tobacco type: pipe and cigars Tobacco: How many years used: 50 second hand exposure: No alcohol intake: never substance use type: does not use caffeine: No what type of physical activity do you participate in: none frequency: does not exercise jesus/taoism: Mennonite do you feel safe at home: Yes Past Medical/Surgical History Planned Operation Planned Operative Procedure(s): COLONOSCOPY Previous Hospitalizations/Surgeries HX Hospitalizations: No Any Problems With Anesthesia: No You/Your Family Experience Fever (Hyperthermia) With Anes: No Cholinesterase deficiency: No Cardiovascular Hx Hypertension: Yes Respiratory Hx Sleep Apnea: No CPAP: No Hx Respiratory Tract Infection/Cold (presently): No Do You Snore Loudly (louder than talking or can be heard): No Do You Often Feel Tired/ Fatigued/ Sleepy Dring Daytime?: No Has Anyone Observed You Stop Breathing During Sleep?: No Result (for STOP score): Negative Smoking Status: Current some day smoker Neurological Does patient have nerve stimulator: No Reproduction : No Miscellaneous Recent Exposure to Contagious Disease: No Allergies No Known Allergies Allergy (Verified 10/09/24 10:08) Discharge Is Pt Admitted From a Custodial, or a Jail: No Who Could Help: -BLAYNE After D/C, Where Do you Plan to Go: Return Home Vital Signs Vital Signs Vital Signs: 10/09/24 10:09 10/09/24 10:09 10/09/24 10:23 Temperature 97.1 F L 97.1 F L Temperature Source Temporal Pulse Rate 85 85 Respiratory Rate 16 16 Respiratory Pattern Normal Blood Pressure 157/93 H 157/93 H Blood Pressure Mean 114 Blood Pressure Source Monitor Blood Pressure Position Sitting Blood Pressure Location Right Arm Pulse Ox 99 99 Oxygen Delivery Method Room Air Weight Weight: 222 lb 10.67 oz Body Mass Index (BMI) 31.9 Physical Exam Const alert, oriented x3 and no apparent distress HEENT normocephalic and head/scalp atraumatic Resp normal respiratory effort Cardio regular rate GI soft to palpation and non-tender; Negative for non-distended Palpation: Negative for guarding Extremity no clubbing, cyanosis or edema Skin no rashes or lesions noted Neuro CN's II-XII intact bilaterally Psych mental status grossly normal Assessment & Plan Assessment/Plan (1) Cancer: (2) Status post colectomy: Surgery Risks - Colonoscopy I discussed with the patient the risks of the procedure: Yes Risks Include but are not Limited To: Risks include but are not limited to: Bleeding, perforation requiring further surgery, inability to complete colonoscopy requiring barium enema.
--- NOTE | 2024-10-09 12:00 | PCM.POST.ANE ---
Anesthesia: Postop Eval I Current Vital Signs Temperature: 97.6 F Pulse Rate: 72 Blood Pressure: 124/68 Respiratory Rate: 12 Pulse Ox: 98 Oxygen Delivery Method: Room Air Assessment Airway patent: Yes Spontaneous unlabored respirations: Yes Mental status: Awake nausea: No Vomiting: No Anesthesia Complication: No Fluid Hydration Crystalloid volume administer (ml): 100 Total IV fluid infused: 100 Progress Note Anesthesia document: Postop Eval 1 completed: Yes
--- NOTE | 2024-10-09 12:07 | OP.CCLET_ITS ---
10/09/2024 Humberto Gaytan Do Re : Colonoscopy procedure for Wilfred Grier Dear Lucila This procedure was performed on Wednesday, October 09, 2024. My impressions and recommendations are as follows: Impressions : - Three less than 5 mm polyps in the rectum and in the transverse colon, removed with a cold snare. Resected and retrieved. - The examination was otherwise normal on direct and retroflexion views. Recommendations : - Discharge patient to home. - Resume previous diet. - Continue present medications. - Await pathology results. - Repeat colonoscopy in 3 years for surveillance based on pathology results. My findings are described in the full procedure note, which is enclosed. If I can be of further assistance, please feel free to contact me at Doctor phone number(s): , Work: . Sincerely, MD Olinda Wilkins MD 10/09/2024 12:07:00 PM This report has been signed electronically.
--- NOTE | 2024-10-09 12:07 | OP.COLON_ITS ---
Patient Name: Wilfred Grier Procedure Date: 10/09/2024 11:33 AM Date of : 1945 Age: 79 Procedure: Colonoscopy Indications: High risk colon cancer surveillance: Personal history of colon cancer Providers: Olinda Acevedo MD Referring MD: Humberto Gaytan Do Medicines: Monitored Anesthesia Care Patient Profile: This is an 79 year old male. Last Colonoscopy: October 2021. Complications: No immediate complications. Procedure: Pre-Anesthesia Assessment: - Prior to the procedure, a History and Physical was performed, and patient medications and allergies were reviewed. The patient's tolerance of previous anesthesia was also reviewed. The risks and benefits of the procedure and the sedation options and risks were discussed with the patient. All questions were answered, and informed consent was obtained. Prior Anticoagulants: The patient has taken no anticoagulant or antiplatelet agents. ASA Grade Assessment: Per anesthesia. After reviewing the risks and benefits, the patient was deemed in satisfactory condition to undergo the procedure. After I obtained informed consent, the scope was passed under direct vision. Throughout the procedure, the patient's blood pressure, pulse, and oxygen saturations were monitored continuously. The Colonoscope was introduced through the anus and advanced to the ileocolonic anastomosis. The colonoscopy was performed without difficulty. The patient tolerated the procedure well. The quality of the bowel preparation was good. Scope In: 11:45:43 AM Scope Out: 11:58:18 AM Total Procedure Duration Time 0 hours 12 minutes 35 seconds Findings: The perianal and digital rectal examinations were normal. Three sessile polyps were found in the rectum and transverse colon. The polyps were less than 5 mm in size. These polyps were removed with a cold snare. Resection and retrieval were complete. The exam was otherwise without abnormality on direct and retroflexion views. Impression: - Three less than 5 mm polyps in the rectum and in the transverse colon, removed with a cold snare. Resected and retrieved. - The examination was otherwise normal on direct and retroflexion views. Recommendation: - Discharge patient to home. - Resume previous diet. - Continue present medications. - Await pathology results. - Repeat colonoscopy in 3 years for surveillance based on pathology results. Procedure Code(s): --- Professional --- 33020, PT, Colonoscopy, flexible; with removal of tumor(s), polyp(s), or other lesion(s) by snare technique Diagnosis Code(s): --- Professional --- Z85.038, Personal history of other malignant neoplasm of large intestine D12.8, Benign neoplasm of rectum D12.3, Benign neoplasm of transverse colon (hepatic flexure or splenic flexure) CPT copyright 2021 [employer]. All rights reserved. The codes documented in this report are preliminary and upon insurance coder review may be revised to meet current compliance requirements. MD Olinda Wilkins MD 10/09/2024 12:07:00 PM This report has been signed electronically. Number of Addenda: 0 Note Initiated On: 10/09/2024 11:33 AM
[2024-10-09 12:25] LABS: Bedside Glucose 260 mg/dL (74-106)
--- NOTE | 2024-10-09 13:19 | POSTOPAN2_ITS ---
Anesthesia Postop Eval I Sum Postop Eval Completion status Anesthesia document: Postop Eval 1 completed: Yes Anesthesia Postop Eval I Summary Anesthesia Postop Eval I Summary: Anesthesia Postop Eval I: Assessment Summary Airway patent Yes 10/09/24 12:01 [email or web address] Spontaneous unlabored Yes 10/09/24 12:01 MANAGER [email or web address] respirations Mental status Awake 10/09/24 12:01 MANAGER [email or web address] nausea No 10/09/24 12:01 MANAGER [email or web address] Vomiting No 10/09/24 12:01 MANAGER [email or web address] Anesthesia Postop Eval I: Fluid Summary Crystalloid volume administer 100 10/09/24 12:01 [email or web address] (ml) Colloids volume administered ( ml) Blood Product volume administered (ml) Total IV fluid infused 100 10/09/24 12:01 MANAGER [email or web address] Anesthesia Postop Eval I: Summary Notes Anesthesia Complication No 10/09/24 12:01 MANAGER [email or web address] Anesthesia Complication Comment: Post-operative progress note Anesthesia: Postop Eval II Evaluation Mental status: Awake Pain Level: 0 nausea: No Vomiting: No
--- NOTE | 2024-10-09 13:19 | PCM.POSTANE2 ---
Anesthesia Postop Eval I Sum Postop Eval Completion status Anesthesia document: Postop Eval 1 completed: Yes Anesthesia Postop Eval I Summary Anesthesia Postop Eval I Summary: Anesthesia Postop Eval I: Assessment Summary Airway patent Yes 10/09/24 12:01 [email or web address] Spontaneous unlabored Yes 10/09/24 12:01 [email or web address] respirations Mental status Awake 10/09/24 12:01 [email or web address] nausea No 10/09/24 12:01 TAX [email or web address] Vomiting No 10/09/24 12:01 TAX [email or web address] Anesthesia Postop Eval I: Fluid Summary Crystalloid volume administer 100 10/09/24 12:01 [email or web address] (ml) Colloids volume administered ( ml) Blood Product volume administered (ml) Total IV fluid infused 100 10/09/24 12:01 [email or web address] Anesthesia Postop Eval I: Summary Notes Anesthesia Complication No 10/09/24 12:01 TAX [email or web address].[email or web address] Anesthesia Complication Comment: Post-operative progress note Anesthesia: Postop Eval II Evaluation Mental status: Awake Pain Level: 0 nausea: No Vomiting: No
== END 2024-10-09 12:51 | disposition home or self-care (01) ==
LOC: EN 09:47 → AC 09:58
PROVIDERS: PCP Physician Assistant; Referring Provider Physician Assistant; Visit Provider Surgery
PROC: 0DJD8ZZ Inspection of Lower Intestinal Tract, Via Natural or Artificial Opening Endoscopic (ICD-10-PCS; CPT 45378; principal; 2024-10-09 11:25)
DX: Z12.11 Encounter for screening for malignant neoplasm of colon (principal); E11.9 Type 2 diabetes mellitus without complications; Z79.4 Long term (current) use of insulin; I10 Essential (primary) hypertension; E78.00 Pure hypercholesterolemia, unspecified; Z79.82 Long term (current) use of aspirin; Z90.49 Acquired absence of other specified parts of digestive tract; Z85.038 Personal history of other malignant neoplasm of large intestine; F17.290 Nicotine dependence, other tobacco product, uncomplicated; D12.3 Benign neoplasm of transverse colon; K62.1 Rectal polyp
CPT/HCPCS: 45385; 82962; 88305